=== PATIENT | male | born 1960 | race Caucasian/White ===

== ENCOUNTER 2017-09-25 13:00 | Emergency (ER) | payer MEDICARE, MEDICAID ==
[2017-09-25] MEDS ORDERED: ALBUTEROL SULFATE 0.083% NEB 2.5 MG/3 ML AMPUL NEB ONE (13:52)
--- NOTE | 2017-09-25 13:54 | ER Document Report ---
ED Medical Screen (RME) - General Chief Complaint: Flank Pain Stated Complaint: FLANK PAIN Time Seen by Provider: 09/25/17 13:41 Information source: Patient Notes: 57 y.o male presents to the ED with LT flank pain for the past 3 days. He states that his pain is exacerbated with movement. He denies any dysuria, hematuria, fever, ausea, vomiting and denies any fall. Patient has a wheeze and is SOB with walking. Pt denies any hx of asthma, COPD and emphasema. He uses an albuterol inhaler for emergencies. TRAVEL OUTSIDE OF THE [place] IN LAST 30 DAYS: No - Related Data Allergies/Adverse Reactions: JEOVANY Inhibitors [Jeovany Inhibitors] Allergy (Severe, Verified 09/25/17 13:05) Facial swelling enalapril [Enalapril] Adverse Reaction (Severe, Verified 09/25/17 13:05) periorbital edema lisinopril Adverse Reaction (Severe, Verified 09/25/17 13:05) periorbital edema Past Medical History - General Information source: Patient - Social History Chew tobacco use (# tins/day): No Frequency of alcohol use: None Drug Abuse: None - Past Medical History Cardiac Medical History: Reports: Hx Atrial Fibrillation, Hx Congestive Heart Failure, Hx Coronary Artery Disease, Hx Heart Attack - x2, Hx Hypercholesterolemia, Hx Hypertension Pulmonary Medical History: Reports: Hx Bronchitis, Hx Pneumonia Neurological Medical History: Reports: Hx Cerebrovascular Accident - 2012 Comment Only: Hx Seizures - unsure - maybe one, but not diagnosed 2013 Renal/ Medical History: Reports: Hx Kidney Stones. Denies: Hx Peritoneal Dialysis GI Medical History: Reports: Hx Gastroesophageal Reflux Disease Musculoskeltal Medical History: Reports Hx Multiple Sclerosis Psychiatric Medical History: Reports: Hx Bipolar Disorder Past Surgical History: Reports: Hx Appendectomy, Hx Bowel Surgery, Hx Cardiac Catheterization, Hx Cardiac Surgery, Hx Cholecystectomy, Hx Internal Defibrillator, Hx Tonsillectomy - Immunizations Immunizations up to date: Yes Hx Diphtheria, Pertussis, Tetanus Vaccination: Yes Review of Systems - Review of Systems Constitutional: denies: Fever Gastrointestinal: See HPI. denies: Nausea, Vomiting Genitourinary: See HPI, Flank pain - LT. denies: Dysuria, Hematuria Physical Exam - Vital signs Vitals: Temp Pulse Resp BP Pulse Ox 99.1 F 99 20 140/103 H 94 09/25/17 13:06 09/25/17 13:06 09/25/17 13:06 09/25/17 13:06 09/25/17 13:06 - General General appearance: Alert In distress: None - Respiratory Breath sounds: Wheezing - Extremities General upper extremity: Normal inspection, Normal ROM General lower extremity: Normal inspection, Normal ROM - Neurological Neuro grossly intact: Yes Cognition: Normal Orientation: AAOx4 - Psychological Associated symptoms: Normal affect, Normal mood - Skin Skin Temperature: Warm Skin Moisture: Dry Skin Color: Normal Course - Vital Signs Vital signs: Temp Pulse Resp BP Pulse Ox 99.1 F 99 20 147/99 H 94 09/25/17 13:06 09/25/17 13:06 09/25/17 13:06 09/25/17 13:51 09/25/17 13:06 - Laboratory Result Diagrams: 09/25/17 14:00 09/25/17 14:00 Laboratory results interpreted by me: 09/25/17 14:00 WBC 11.6 H Eosinophils % 8.0 H Absolute Eosinophils 0.9 H Scribe Documentation - Scribe Written by Burt:: Alma Covington, Kevibdheeraj 09/25/17 1522 acting as scribe for :: Louis
--- NOTE | 2017-09-25 14:12 | ER Document Report ---
ED General - General Chief Complaint: Flank Pain Stated Complaint: FLANK PAIN Time Seen by Provider: 09/25/17 13:41 Notes: The patient is a 57-year-old male, past medical history kidney stones, COPD, presents with bilateral flank pain, worse on the left, that is exacerbated with movement. Patient has also had a dry cough with some wheezing over the past 2 days and is using his albuterol at home with some relief of his symptoms. Patient denies fevers, dysuria, hematuria, rash, nausea, vomiting, diarrhea, constipation, chest pain or shortness of breath. TRAVEL OUTSIDE OF THE [place] IN LAST 30 DAYS: No - Related Data Allergies/Adverse Reactions: JEOVANY Inhibitors [Jeovany Inhibitors] Allergy (Severe, Verified 09/25/17 13:05) Facial swelling enalapril [Enalapril] Adverse Reaction (Severe, Verified 09/25/17 13:05) periorbital edema lisinopril Adverse Reaction (Severe, Verified 09/25/17 13:05) periorbital edema Past Medical History - General Information source: Patient - Social History Smoking Status: Never Smoker Chew tobacco use (# tins/day): No Frequency of alcohol use: None Drug Abuse: None Family History: CAD Patient has suicidal ideation: No Patient has homicidal ideation: No - Past Medical History Cardiac Medical History: Reports: Hx Atrial Fibrillation, Hx Congestive Heart Failure, Hx Coronary Artery Disease, Hx Heart Attack - x2, Hx Hypercholesterolemia, Hx Hypertension Denies: Hx Peripheral Vascular Disease, Hx Pulmonary Embolism, Hx Heart Murmur Pulmonary Medical History: Reports: Hx Bronchitis, Hx Pneumonia Denies: Hx Asthma, Hx COPD, Hx Respiratory Failure, Hx Sleep Apnea, Hx Tuberculosis Neurological Medical History: Reports: Hx Cerebrovascular Accident - 2012 Comment Only: Hx Seizures - unsure - maybe one, but not diagnosed 2013 Renal/ Medical History: Reports: Hx Kidney Stones. Denies: Hx Benign Prostatic Hyperplasia, Hx End Stage Renal Disease, Hx Peritoneal Dialysis Malignancy Medical History: Denies Hx Lung Cancer GI Medical History: Reports: Hx Gastroesophageal Reflux Disease. Denies: Hx Crohn's Disease, Hx Hiatal Hernia, Hx Irritable Bowel, Hx Liver Failure, Hx Pancreatitis, Hx Ulcer Musculoskeltal Medical History: Denies Hx Arthritis, Denies Hx Fibromyalgia, Reports Hx Multiple Sclerosis, Denies Hx Muscular Dystrophy Psychiatric Medical History: Reports: Hx Bipolar Disorder Denies: Hx Dementia, Hx Depression, Hx Post Traumatic Stress Disorder, Hx Schizophrenia Traumatic Medical History: Denies: Hx Fractures Past Surgical History: Reports: Hx Appendectomy, Hx Bowel Surgery, Hx Cardiac Catheterization, Hx Cardiac Surgery, Hx Cholecystectomy, Hx Internal Defibrillator, Hx Tonsillectomy. Denies: Hx Colostomy, Hx Coronary Artery Bypass Graft, Hx Gastric Bypass Surgery, Hx Herniorrhaphy, Hx Pacemaker - Immunizations Immunizations up to date: Yes Hx Diphtheria, Pertussis, Tetanus Vaccination: Yes Hx Pneumococcal Vaccination: 08/01/08 Review of Systems - Review of Systems Notes: REVIEW OF SYSTEMS: CONSTITUTIONAL: -fevers, -chills EENT: -eye pain, -difficulty swallowing, -nasal congestion CARDIOVASCULAR: -chest pain, -syncope. RESPIRATORY: +cough, -SOB GASTROINTESTINAL: -abdominal pain, -nausea, -vomiting, -diarrhea GENITOURINARY: -dysuria, -hematuria MUSCULOSKELETAL: +back pain, -neck pain SKIN: -rash or skin lesions. HEMATOLOGIC: -easy bruising or bleeding. LYMPHATIC: -swollen, enlarged glands. NEUROLOGICAL: -altered mental status or loss of consciousness, -headache, - neurologic symptoms PSYCHIATRIC: -anxiety, -depression. ALL OTHER SYSTEMS REVIEWED AND NEGATIVE. Physical Exam - Vital signs Vitals: Temp Pulse Resp BP Pulse Ox 99.1 F 99 20 140/103 H 94 09/25/17 13:06 09/25/17 13:06 09/25/17 13:06 09/25/17 13:06 09/25/17 13:06 - Notes Notes: PHYSICAL EXAMINATION: GENERAL: Well-appearing, well-nourished and in no acute distress. HEAD: Atraumatic, normocephalic. EYES: Pupils equal round and reactive to light, extraocular movements intact, sclera anicteric, conjunctiva are normal. ENT: nares patent, oropharynx clear without exudates. Moist mucous membranes. NECK: Normal range of motion, supple without lymphadenopathy LUNGS: No respiratory distress. Mild end-expiratory wheeze. HEART: Regular rate and rhythm without murmurs ABDOMEN: Soft, nontender, normoactive bowel sounds. No guarding, no rebound. No masses appreciated. EXTREMITIES: Normal range of motion, no pitting or edema. No cyanosis. BACK: Tenderness over left lower back, no midline tenderness. NEUROLOGICAL: Cranial nerves grossly intact. Normal speech, normal gait. Normal sensory and motor exams. PSYCH: Normal mood, normal affect. SKIN: Warm, Dry, normal turgor, no rashes or lesions noted. Course - Re-evaluation Re-evalutation: Patient appears well. No kidney stones on CT scan and symptoms are more typical for low back strain. No red flag signs for low back pain at this time. Instructed him about symptomatic treatment with Tylenol, heating pads and Lidoderm patches with follow-up at his primary care physician. He also had mild wheezing that resolved after duonebs and he was provided a dose of Decadron. Will discharge patient home with very strict return precautions. - Vital Signs Vital signs: Temp Pulse Resp BP Pulse Ox 99.1 F 99 20 147/99 H 94 09/25/17 13:06 09/25/17 13:06 09/25/17 13:06 09/25/17 13:51 09/25/17 13:06 - Laboratory Result Diagrams: 09/25/17 14:00 09/25/17 14:00 Laboratory results interpreted by me: 09/25/17 09/25/17 09/25/17 14:00 14:00 14:00 WBC 11.6 H Eosinophils % 8.0 H Absolute Eosinophils 0.9 H BUN 23 H Creatinine 1.29 H Est GFR (Non-Af Amer) 58 L NT-Pro-B Natriuret Pep 1490 H Urine Urobilinogen 09/25/17 14:56 WBC Eosinophils % Absolute Eosinophils BUN Creatinine Est GFR (Non-Af Amer) NT-Pro-B Natriuret Pep Urine Urobilinogen 4.0 H - Diagnostic Test Radiology reviewed: Image reviewed, Reports reviewed Radiology results interpreted by me: CXR: NAD CT A/P: NAD Discharge - Discharge Clinical Impression: Bronchitis Low back pain Qualifiers: Chronicity: unspecified Back pain laterality: left Sciatica presence: without sciatica Qualified Code(s): M54.5 - Low back pain Condition: Stable Disposition: HOME, SELF-CARE Additional Instructions: LOW BACK PAIN: Three out of every four people will have an episode of disabling back pain during their lifetime. Most commonly the pain is due to straining of the muscles and ligaments in the low back. Usual treatment includes: (1) Rest on a firm surface. Avoid lying on your stomach. (2) Ice pack the painful area. After a few days, gentle heat may be used intermittently to relax the area, or ice packs can be continued. (3) Medication may be needed -- muscle relaxers and antiinflammatory medicines are commonly used. (4) As the back improves, exercises are prescribed to strengthen the back and abdominal muscles. Your doctor will advise you on the proper care for your back at each stage in your recovery. You may be better in a few days -- or healing may take several weeks. If new symptoms of a "herniated disc" (radiation of pain, numbness, or tingling down the back of the leg or weakness in the leg) occur, you should be re-examined. Further testing may be necessary. ICE PACKS: Apply ice packs frequently against the painful area. Many different schedules are recommended, such as "20 minutes on, 20 minutes off" or "one hour ice, two hours rest." If you need to work, you may need to go longer between ice treatments. You should plan to have the area ice packed AT LEAST one fourth of the time. The ice should be applied over the wrap, tape, or splint, or over a layer of cloth -- not directly against the skin. Some ice bags have a built-in cloth and can be put directly on the skin. WARM PACKS: After approximately two days, apply gentle heat (such as a heating pad or hot water bottle) for about 20 to 30 minutes about every two hours -- at least four times daily. Warmth and elevation will help you make a more rapid recovery , and will ease the pain considerably. Do not use HOT heat, and never apply heat for longer than 30 minutes. The continuous heat can invisibly damage skin and muscles -- even when no burn is seen on the surface. Damaged muscles can make you MORE sore. FOLLOW-UP CARE: If you have been referred to a physician for follow-up care, call the physician s office for an appointment as you were instructed or within the next two days. If you experience worsening or a significant change in your symptoms, notify the physician immediately or return to the Emergency Department at any time for re-evaluation. BRONCHITIS WITH BRONCHOSPASM (WHEEZING): You have bronchitis with bronchospasm (wheezing). Sometimes people develop wheezing with a chest cold. This occurs either because of an underlying tendency toward asthma or because the virus itself irritates the bronchial tubes. This irritation causes cough, shortness of breath, and wheezing. Emergency treatment of bronchospasm may include adrenaline shots or bronchodilator aerosol. You may feel lightheaded and have a rapid pulse for an hour or two. Rest and get plenty of fluids. At home, we'll treat you with a bronchodilator inhaler. Corticosteroids may be required for some patients. Until you recover, avoid chemical fumes, dusts, pollens, and exercising in very cold or dry air. If you smoke, stop now! Most cases of bronchitis get better without antibiotics. We prescribe antibiotics when we believe bacteria are damaging your airways, or if there's high risk the bronchitis will worsen into pneumonia. Increase your fluid intake. A cool mist humidifier may make your lungs more comfortable. An expectorant (cough medicine that loosens phlegm) can help. Repeated episodes of bronchitis and bronchospasm may result in lung damage -- for example, chronic bronchitis, recurrent pneumonias, or emphysema. If you develop a fever, increased wheezing, chest pain, or severe shortness of breath, you should contact the doctor immediately. INHALED BRONCHODILATORS: You have received a treatment of and/or prescription for an inhaled bronchodilator -- a medication which stimulates the airways in the lung to dilate. This improves the flow of air in asthma, bronchitis, and emphysema. These medicines have some similarity to adrenaline, and can cause similar side effects: shakiness, racing heart, and a sense of nervousness. These side effects decrease with time. Contact your doctor if these side effects are severe. Do not over-use the medicine. Too-frequent use of the inhaler may make it ineffective. Call your doctor if the inhaler is not controlling your symptoms at the prescribed doses. STEROID MEDICATION: You have been given an injection of or oral medicine of the cortisone/ steroid class. This medication is used to control inflammation or allergy. Rick t is usually only given for a short period of time, until the acute process subsides. There are usually no side effects from short-term use of cortisone-like medications. Some persons feel an increased sense of well-being and are not sleepy at bedtime. Long-term use of cortisone medications is best avoided, unless required for a severe condition. If your condition does not remit, or relapses after the course of corticosteroid medication, you should consult your physician. USE OF ACETAMINOPHEN (Tylenol): Acetaminophen may be taken for pain relief or fever control. It's much safer than aspirin, offering a wider range of "safe" dosages. It is safe during . Some brand names are Tylenol, Panadol, Datril, Anacin 3, Tempra, and Liquiprin. Acetaminophen can be repeated every four hours. The following are maximum recommended dosages: >89 pounds or adults 650 mg to 900 mg Acetaminophen can be repeated every four hours. Maximum dose not to exceed 4000 mg a day. SMOKING: If you smoke, you should stop smoking. The tar and chemicals in cigarette smoke are harmful. Smoking has been shown to cause: emphysema chronic bronchitis lung cancer mouth and throat cancer stomach and pancreas cancer premature aging defects In addition, smoking increases ear and lung infections in children of smokers. FOLLOW-UP CARE: If you have been referred to a physician for follow-up care, call the physician s office for an appointment as you were instructed or within the next two days. If you experience worsening or a significant change in your symptoms, notify the physician immediately or return to the Emergency Department at any time for re-evaluation. Prescriptions: Albuterol Sulfate [Proair HFA Inhalation Aerosol 8.5 gm MDI] 2 puff IH Q4H PRN # 1 mdi PRN Reason: Lidocaine [Lidoderm 5% (700 mg) Transdermal Patch] 1 patch TP DAILY #10 adh..patch Forms: Elevated Blood Pressure Referrals: JUANITO PEARCE MD [Primary Care Provider] - Follow up as needed
[2017-09-25 14:16] LABS: ABSOLUTE BASOPHILS # (AUTO) 0.2 10^3/uL (0.0-0.2); ABSOLUTE EOSINOPHILS # (AUTO) 0.9 10^3/uL (0.0-0.6); ABSOLUTE LYMPHOCYTES (AUTO) 1.8 10^3/uL (0.5-4.7); ABSOLUTE MONOCYTES (AUTO) 0.7 10^3/uL (0.1-1.4); ABSOLUTE NEUT (AUTO) 8.1 10^3/uL (1.7-8.2); BASOPHILS % (AUTO) 1.4 % (0-2); HEMATOCRIT 42.7 % (37.9-51.0); HEMOGLOBIN 14.3 g/dL (13.5-17.0); LYMPHOCYTES % (AUTO) 15.4 % (13-45); MEAN CORPUSCULAR HEMOGLOBIN 29.9 pg (27.0-33.4); MEAN CORPUSCULAR HGB CONC 33.4 g/dL (32.0-36.0); MEAN CORPUSCULAR VOLUME 89 fl (80-97); MONOCYTES % (AUTO) 5.7 % (3-13); PLATELET COUNT 231 10^3/uL (150-450); RED BLOOD COUNT 4.77 10^6/uL (4.35-5.55); RED CELL DISTRIBUTION WIDTH 13.9 % (11.5-14.0); SEGMENTED NEUTROPHILS % (AUTO) 69.5 % (42-78); TOTAL CELLS COUNTED % (AUTO) 100 %; WHITE BLOOD COUNT 11.6 10^3/uL (4.0-10.5)
[2017-09-25] MEDS: IPRATROPIUM BROMIDE 0.02% NEB 0.5 MG/2.5 ML AMPUL NEB PRN ×2 (14:16→16:24)
--- NOTE | 2017-09-25 14:24 | RADIOLOGY REPORT (SQ) ---
EXAM DESCRIPTION: CHEST PA/LAT COMPLETED DATE/TIME: 09/25/2017 2:12 pm REASON FOR STUDY: wheezing COMPARISON: 01/31/2016 EXAM PARAMETERS: NUMBER OF VIEWS: two views TECHNIQUE: Digital Frontal and Lateral radiographic views of the chest acquired. RADIATION DOSE: NA LIMITATIONS: none FINDINGS: LUNGS AND PLEURA: No opacities, masses or pneumothorax. No pleural effusion. MEDIASTINUM AND HILAR STRUCTURES: No masses or contour abnormalities. HEART AND VASCULAR STRUCTURES: Heart stable in size. No evidence for failure. BONES: No acute findings. HARDWARE: Stable. OTHER: No other significant finding. IMPRESSION: NO ACUTE CARDIOPULMONARY PROCESS. NO SIGNIFICANT CHANGE FROM PRIOR STUDY. TECHNICAL DOCUMENTATION: JOB ID: [id number] [employer]- All Rights Reserved Reading location - IP/workstation name: [email or web address]
[2017-09-25 14:36] LABS: ALANINE AMINOTRANSFERASE 34 U/L (21-72); ALBUMIN 3.8 g/dL (3.5-5.0); ALKALINE PHOSPHATASE 78 U/L (38-126); ANION GAP 13 (5-19); ASPARTATE AMINO TRANSFERASE 21 U/L (17-59); BILIRUBIN,DIRECT 0.3 mg/dL (0.0-0.4); BILIRUBIN,TOTAL 0.3 mg/dL (0.2-1.3); BLOOD UREA NITROGEN 23 mg/dL (7-20); CARBON DIOXIDE 30 mmol/L (22-30); CHLORIDE 102 mmol/L (98-107); GLUCOSE 86 mg/dL (75-110); LIPASE 130.1 U/L (23-300); POTASSIUM 4.5 mmol/L (3.6-5.0); SODIUM 144.7 mmol/L (137-145); TOTAL PROTEIN 6.5 g/dL (6.3-8.2)
[2017-09-25 14:47] LABS: TROPONIN I 0.016 ng/mL
[2017-09-25] MEDS ORDERED: ACETAMINOPHEN 325 MG TABLET PO ONE (14:57)
[2017-09-25] MEDS ORDERED: NAPROXEN 250 MG TABLET PO ONE (14:57)
[2017-09-25 15:23] LABS: APPEARANCE,URINE CLEAR; BILIRUBIN,URINE NEGATIVE (NEGATIVE); COLOR,URINE YELLOW; GLUCOSE, URINE NEGATIVE (NEGATIVE); KETONES,URINE NEGATIVE (NEGATIVE); LEUKOCYTE ESTERASE,URINE NEGATIVE (NEGATIVE); NITRITE,URINE NEGATIVE (NEGATIVE); PROTEIN,URINE NEGATIVE (NEGATIVE); URINE SPECIFIC GRAVITY 1.024
--- NOTE | 2017-09-25 15:32 | RADIOLOGY REPORT (SQ) ---
EXAM DESCRIPTION: CT LTD RENAL STONE PROTOCOL ON COMPLETED DATE/TIME: 09/25/2017 3:22 pm REASON FOR STUDY: left flank pain radiating into groin COMPARISON: 06/02/2016. TECHNIQUE: CT scan of the abdomen and pelvis performed without intravenous or oral contrast. Images reviewed with lung, soft tissue, and bone windows. Reconstructed coronal and sagittal MPR images revi ewed. All images stored on PACS. All CT scanners at this facility use dose modulation, iterative reconstruction, and/or weight based d osing when appropriate to reduce radiation dose to as low as reasonably achievable (ALARA). [facility]: Dose Right [facility]: CareDose [facility]: Dose Right [facility]: Teradose 4D [facility]: [employer] RADIATION DOSE: CT Rad equipment meets quality standard of care and radiation dose reduction techniq ues were employed. CTDIvol: 18.9 mGy. DLP: 1080 mGy-cm.mGy. LIMITATIONS: None. FINDINGS: LOWER CHEST: No significant findings. No nodules or infiltrates. NON-CONTRASTED LIVER, SPLEEN, ADRENALS: Evaluation limited by lack of IV contrast. No identified sign ificant masses. PANCREAS: No masses. No peripancreatic inflammatory changes. GALLBLADDER: No identified stones by CT criteria. No inflammatory changes to suggest cholecystitis. RIGHT KIDNEY AND URETER: No suspicious masses. Assessment limited by lack of IV contrast. No signif icant calcifications. No hydronephrosis or hydroureter. LEFT KIDNEY AND URETER: No suspicious masses. Assessment limited by lack of IV contrast. No signifi cant calcifications. No hydronephrosis or hydroureter. AORTA AND RETROPERITONEUM: No aneurysm. No retroperitoneal masses or adenopathy. BOWEL AND PERITONEAL CAVITY: No obvious masses or inflammatory changes. No free fluid. APPENDIX: Normal. PELVIS, BLADDER, AND ABDOMINAL WALL:No abnormal masses. No free fluid. Bladder normal. Stable fat co ntaining inguinal hernias. BONES: Stable degenerative change without fracture or suspicious osseous lesion. OTHER: No other significant finding. IMPRESSION: NO ACUTE FINDINGS ON THIS NONCONTRAST CT OF THE ABDOMEN AND PELVIS. NO SIGNIFICANT INIGUEZ GE FROM PRIOR STUDY. COMMENT: Quality ID # [id number]: Final reports with documentation of one or more dose reduction techniques (e.g., Automated exposure control, adjustment of the mA and/or kV according to patient size, use of iterative reconstruction technique) TECHNICAL DOCUMENTATION: JOB ID: [id number] [employer]- All Rights Reserved Reading location - IP/workstation name: [email or web address]
--- NOTE | 2017-09-25 16:13 | EKG REPORT ---
SEVERITY:- ABNORMAL ECG - VENTRICULAR-PACED COMPLEXES , BASELINE A FIB. NONSPECIFIC T ABNORMALITIES, INFERIOR LEADS : Confirmed by: Humble Murguia MD 25-Sep-2017 16:13:17
[2017-09-25 17:30] VITALS: BP 130/97
== END 2017-09-25 17:31 | disposition home or self-care (01) ==
LOC: ER 13:00
DX: J40 Bronchitis, not specified as acute or chronic (principal); M54.5 Low back pain; J44.9 Chronic obstructive pulmonary disease, unspecified; I48.91 Unspecified atrial fibrillation; I50.9 Heart failure, unspecified; E78.00 Pure hypercholesterolemia, unspecified; I11.0 Hypertensive heart disease with heart failure; I25.2 Old myocardial infarction; Z86.73 Personal history of transient ischemic attack (TIA), and cerebral infarction without residual deficits; Z87.442 Personal history of urinary calculi; Z90.49 Acquired absence of other specified parts of digestive tract; Z95.810 Presence of automatic (implantable) cardiac defibrillator
CPT/HCPCS: 93005; 94640 ×2; 99285; 36415; 83690; 85025; 80053; 81001; 84484; 83880; 71046; 76380; 93010; A9270 ×3; J3490

== ENCOUNTER → 2017-09-29 | Outpatient (CLI) | payer MEDICARE, MEDICAID ==
--- NOTE | 2017-09-30 08:26 | XCELERA REPORT ---
[address] [address] Lower Extremity Arterial Evaluation Name: MALAIKA SARGENT Age: 57 yrs Gender: Male : 1960 Patient Status: Outpatient Patient Location: Study Date: 09/29/2017 08:02 AM Procedure: A color flow and duplex scan of the lower extremity arteries was performed bilaterally with velocity and waveform anaylsis. Ankle brachial indicies performed. PPG's performed. Reason For Study: PVD Ordering Physician: TAMMI KING Performed By: Linden Banegas Measurements and Calculations Right Left CORONER'S JUROR PSV 77.6 96.5 cm/sec Prox PFA PSV -53.0 -61.8 cm/sec Prox SFA PSV 108.2 99.8 cm/sec Mid SFA PSV -79.0 -92.1 cm/sec Dist SFA PSV -70.3 -57.9 cm/sec Prox Pop A PSV 63.3 64.8 cm/sec Dist MARIELA PSV 83.4 110.0 cm/sec Dist MEDICAL CLERICAL ASSISTANT PSV 79.5 77.1 cm/sec Louie Pedis PSV -60.9 -80.0 cm/sec Right Side Arterial Evaluation Normal velocity and triphasic waveforms noted from the Common Femoral artery to the infrageniculate vessels. 0 % stenosis . Ankle Brachial index is 1.1. PPG's are normal. Left Side Arterial Evaluation Normal velocity and triphasic waveforms noted from the Common Femoral artery to the infrageniculate vessels. 0 % stenosis . Ankle Brachial index is 1.04. PPG's are normal. Interpretation Summary No hemodynamically significant lesions in the bilateral lower extremities, on duplex imaging, at rest. : TAMMI KING > Morro Higgins
== END ==
LOC: SP 07:18
PROVIDERS: ATTEND Podiatrist Foot & Ankle Surgery
DX: I73.9 Peripheral vascular disease, unspecified (principal)
CPT/HCPCS: 93925

== ENCOUNTER → 2018-07-07 | Outpatient (CLI) | payer MEDICAID, MEDICARE ==
--- NOTE | 2018-07-07 16:32 | RADIOLOGY REPORT (SQ) ---
EXAM DESCRIPTION: CT HEAD WITHOUT COMPLETED DATE/TIME: 07/07/2018 4:14 pm REASON FOR STUDY: G93.40 ENCEPHALOPATHY, UNSPECIFIED G93.40 ENCEPHALOPATHY, UNSPECIFIED COMPARISON: CT brain 11/22/2013, 03/11/2013 TECHNIQUE: Axial images acquired through the brain without intravenous contrast. Images reviewed wi th bone, brain and subdural windows. Additional sagittal and coronal reconstructions were generated. Images stored on PACS. All CT scanners at this facility use dose modulation, iterative reconstruction, and/or weight based d osing when appropriate to reduce radiation dose to as low as reasonably achievable (ALARA). [facility]: Dose Right [facility]: CareDose [facility]: Dose Right [facility]: Teradose 4D [facility]: [employer] RADIATION DOSE: CT Rad equipment meets quality standard of care and radiation dose reduction techniq ues were employed. CTDIvol: 48.7 mGy. DLP: 955 mGy-cm. mGy. LIMITATIONS: None. FINDINGS: VENTRICLES: Normal size and contour. CEREBRUM: No CT evidence of acute large territory ischemic change, acute intracranial hemorrhage, mas s effect, or midline shift. Old left posterior temporal white matter infarct, spotty low attenuation elsewhere in the hemispheric white matter from small vessel ischemic change, chronic. CEREBELLUM: No masses. No hemorrhage. No alteration of density. No evidence for acute infarction. EXTRAAXIAL SPACES: No fluid collections. No masses. ORBITS AND GLOBE: No intra- or extraconal masses. Normal contour of globe without masses. CALVARIUM: No fracture. PARANASAL SINUSES: Trace air-fluid levels in the bilateral maxillary sinuses SOFT TISSUES: No mass or hematoma. OTHER: No other significant finding. 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 Moderate spotty chronic small vessel ischemic correia ge elsewhere in the hemispheric white matter, stable. EVIDENCE OF ACUTE STROKE: NO. COMMENT: This report was discussed with Dr. Conti Quality ID # [id number]: Final reports with documentation of one or more dose reduction techniques (e.g., Au tomated exposure control, adjustment of the mA and/or kV according to patient size, use of iterative reconstruction technique) TECHNICAL DOCUMENTATION: JOB ID: [id number] [employer]- All Rights Reserved Reading location - IP/workstation name: [email or web address]
== END ==
LOC: RAD 16:28
PROVIDERS: ATTEND Internal Medicine
DX: G93.40 Encephalopathy, unspecified (principal)
CPT/HCPCS: 70450

== ENCOUNTER 2018-07-18 16:57 | Observation (INO) | payer MEDICARE ==
[2018-07-18] MEDS ORDERED: FUROSEMIDE INJ/PF 20 MG/2 ML SDV IV ONE (17:23)
--- NOTE | 2018-07-18 17:23 | ER Document Report ---
ED General - General Chief Complaint: Breathing Difficulty Stated Complaint: DIFFICULTY BREATHING Time Seen by Provider: 07/18/18 17:21 Mode of Arrival: Ambulatory Information source: Patient, Dr. Office, [facility] Records Notes: 58-year-old male with congestive heart failure, atrial fibrillation with defibrillator presents from his primary care physician's office Dr. Conti for a direct admission for acute on chronic systolic heart failure. Patient states that he has had shortness of breath for 1 week. He reports a 20 pound weight gain in the last month. Patient denies any associated headache, nausea, vomiting, chest pain, abdominal pain. Does report swelling of his lower extremities. TRAVEL OUTSIDE OF THE [place] IN LAST 30 DAYS: No - HPI Onset: Other Onset/Duration: Gradual, Persistent Quality of pain: No pain Associated symptoms: Leg swelling, Shortness of breath. denies: Chest pain, Nonproductive cough, Productive cough, Hurts to breath, Nausea, Vomiting Exacerbated by: Walking Relieved by: Denies Similar symptoms previously: Yes Recently seen / treated by doctor: Yes - Seen by Dr. Conti today - Related Data Allergies/Adverse Reactions: JEOVANY Inhibitors [Jeovany Inhibitors] Allergy (Severe, Verified 09/25/17 13:05) Facial swelling enalapril [Enalapril] Adverse Reaction (Severe, Verified 09/25/17 13:05) periorbital edema lisinopril Adverse Reaction (Severe, Verified 09/25/17 13:05) periorbital edema Past Medical History - General Information source: Patient, [facility] Records - Social History Smoking Status: Never Smoker Frequency of alcohol use: None Drug Abuse: None Lives with: Spouse/Significant other Family History: CAD - Past Medical History Cardiac Medical History: Reports: Hx Atrial Fibrillation, Hx Congestive Heart Failure, Hx Coronary Artery Disease, Hx Heart Attack - 2012, Hx Hypercholesterolemia, Hx Hypertension - MEDS Denies: Hx Peripheral Vascular Disease, Hx Pulmonary Embolism, Hx Heart Murmur Pulmonary Medical History: Reports: Hx Bronchitis, Hx Pneumonia Denies: Hx Asthma, Hx COPD, Hx Respiratory Failure, Hx Sleep Apnea, Hx Tuberculosis Neurological Medical History: Reports: Hx Cerebrovascular Accident - 2011 OR 2012, Hx Seizures - LAST WEEK EMT TO HOUSE,TREATED TOLD TO GO TO [facility] Renal/ Medical History: Reports: Hx Kidney Stones. Denies: Hx Benign Prostatic Hyperplasia, Hx End Stage Renal Disease, Hx Peritoneal Dialysis Malignancy Medical History: Denies Hx Lung Cancer GI Medical History: Reports: Hx Gastroesophageal Reflux Disease. Denies: Hx Crohn's Disease, Hx Hepatitis, Hx Hiatal Hernia, Hx Irritable Bowel, Hx Liver Failure, Hx Pancreatitis, Hx Ulcer Musculoskeletal Medical History: Denies Hx Arthritis, Denies Hx Fibromyalgia, Reports Hx Multiple Sclerosis, Denies Hx Muscular Dystrophy Psychiatric Medical History: Reports: Hx Bipolar Disorder Denies: Hx Dementia, Hx Depression, Hx Post Traumatic Stress Disorder, Hx Schizophrenia Traumatic Medical History: Denies: Hx Fractures Infectious Medical History: Denies: Hx Hepatitis Past Surgical History: Reports: Hx Appendectomy, Hx Bowel Surgery, Hx Cardiac Catheterization, Hx Cardiac Surgery, Hx Cholecystectomy, Hx Internal Defibrillator, Hx Pacemaker, Hx Tonsillectomy. Denies: Hx Colostomy, Hx Coronary Artery Bypass Graft, Hx Gastric Bypass Surgery, Hx Herniorrhaphy, Hx Open Heart Surgery - Immunizations Immunizations up to date: Yes Hx Diphtheria, Pertussis, Tetanus Vaccination: Yes Hx Pneumococcal Vaccination: 08/01/08 Review of Systems - Review of Systems Notes: REVIEW OF SYSTEMS: CONSTITUTIONAL : Denies fever, chills, or sweats. Denies recent illness. Denies weight loss, recent hospitalizations. EENT: Denies visual changes, eye pain. Denies sore throat, oral lesions, difficulty swallowing. CARDIOVASCULAR: Denies chest pain. Denies palpitations. Denies lower extremity edema. RESPIRATORY: Denies cough. wheezing. GASTROINTESTINAL: Denies abdominal pain or distention. Denies nausea, vomiting , or diarrhea. Denies blood in vomitus, stools, or per rectum. Denies black, tarry stools. Denies constipation. GENITOURINARY: Denies difficulty urinating, painful urination, frequency, blood in urine, testicular pain or penile discharge. MUSCULOSKELETAL: Denies back or neck pain or stiffness. Denies joint pain. SKIN: Denies rash, lesions or sores. HEMATOLOGIC : Denies easy bruising or bleeding. LYMPHATIC: Denies swollen glands. NEUROLOGICAL: Denies confusion or altered mental status. Denies loss of consciousness. Denies dizziness or lightheadedness. Denies headache. Denies weakness or paralysis. Denies problems difficulty with ambulation, slurred speech. Denies sensory loss, numbness, or tingling. Denies seizures. PSYCHIATRIC: Denies anxiety or stress. Denies depression, suicidal ideation, or Physical Exam - Vital signs Vitals: Temp Pulse Resp BP Pulse Ox 98.6 F 101 H 21 H 131/94 H 95 07/18/18 17:09 07/18/18 17:09 07/18/18 17:09 07/18/18 17:09 07/18/18 17:09 - Notes Notes: PHYSICAL EXAMINATION: GENERAL: Well-appearing, well-nourished and in no acute distress. HEAD: Atraumatic, normocephalic. EYES: Pupils equal round and reactive to light, extraocular movements intact, sclera anicteric, conjunctiva are normal. ENT: Nares patent, oropharynx clear without exudates. Moist mucous membranes. NECK: Normal range of motion, supple without lymphadenopathy LUNGS: Diminished breath sounds bilateral lower lung marcum, no wheezes rales or rhonchi. No accessory muscle use. No respiratory distress. HEART: Regular rate and rhythm without murmurs ABDOMEN: Soft, nontender, nondistended abdomen. No guarding, no rebound. No masses appreciated. Musculoskeletal: Normal range of motion, 1+ edema. No cyanosis. NEUROLOGICAL: Cranial nerves grossly intact. Normal speech, normal gait. Normal sensory, motor exams PSYCH: Normal mood, normal affect. SKIN: Warm, Dry, normal turgor, no rashes or lesions noted. Course - Re-evaluation Re-evalutation: Laboratory 07/18/18 07/18/18 17:49 17:49 WBC 13.4 H RBC 4.44 Hgb 13.3 L Hct 40.4 MCV 91 MCH 30.1 MCHC 33.1 RDW 13.9 Plt Count 267 Seg Neutrophils % 76.3 Lymphocytes % 13.0 Monocytes % 5.7 Eosinophils % 4.3 Basophils % 0.7 Absolute Neutrophils 10.2 H Absolute Lymphocytes 1.7 Absolute Monocytes 0.8 Absolute Eosinophils 0.6 Absolute Basophils 0.1 Sodium 144.7 Potassium 4.9 Chloride 109 H Carbon Dioxide 29 Anion Gap 7 BUN 23 H Creatinine 1.36 H Est GFR ( Amer) > 60 Est GFR (Non-Af Amer) 54 L Glucose 110 Calcium 9.3 Total Bilirubin 0.8 Direct Bilirubin 0.3 Neonat Total Bilirubin Not Reportable Neonat Direct Bilirubin Not Reportable Neonat Indirect Bili Not Reportable AST 19 ALT 13 L Alkaline Phosphatase 100 Total Protein 6.7 Albumin 3.9 Chest X-Ray 12/18/18 17:21 IMPRESSION: NO ACUTE RADIOGRAPHIC FINDING IN THE CHEST. 07/18/18 17:31 58-year-old male presents from Dr. Conti's office for direct admission for acute on chronic systolic heart failure. Vital signs reviewed upon arrival and patient is mildly tachycardic with a pulse of 100, afebrile. Patient has an exam significant for 1+ pitting edema and diminished breath sounds. He is in no respiratory distress. Previous medical records and nursing notes reviewed. Written orders from Dr. Conti were followed. Patient will be admitted for observation to the medical floor. 07/18/18 18:38 - Vital Signs Vital signs: Temp Pulse Resp BP Pulse Ox 98.6 F 101 H 21 H 131/94 H 95 07/18/18 17:09 07/18/18 17:09 07/18/18 17:09 07/18/18 17:09 07/18/18 17:09 - Laboratory Result Diagrams: 07/18/18 17:49 07/18/18 17:49 Laboratory results interpreted by me: 07/18/18 07/18/18 17:49 17:49 WBC 13.4 H Hgb 13.3 L Absolute Neutrophils 10.2 H Chloride 109 H BUN 23 H Creatinine 1.36 H Est GFR (Non-Af Amer) 54 L ALT 13 L - Diagnostic Test Radiology reviewed: Image reviewed, Reports reviewed Discharge - Discharge Clinical Impression: Shortness of breath, Body mass index 39.0-39.9, adult, Acute systolic heart failure, Atrial fibrillation Acute on chronic heart failure Qualifiers: Heart failure type: unspecified Qualified Code(s): I50.9 - Heart failure, unspecified Condition: Good Disposition: ADMITTED OBSERVATION Admitting Provider: Sushila Unit Admitted: Medical Floor
--- NOTE | 2018-07-18 17:48 | RADIOLOGY REPORT (SQ) ---
EXAM DESCRIPTION: CHEST 2 VIEWS COMPLETED DATE/TIME: 07/18/2018 5:38 pm REASON FOR STUDY: Shortness of breath COMPARISON: 09/25/2017 EXAM PARAMETERS: NUMBER OF VIEWS: two views TECHNIQUE: Digital Frontal and Lateral radiographic views of the chest acquired. RADIATION DOSE: NA LIMITATIONS: none FINDINGS: LUNGS AND PLEURA: No opacities, masses or pneumothorax. No pleural effusion. MEDIASTINUM AND HILAR STRUCTURES: No masses or contour abnormalities. HEART AND VASCULAR STRUCTURES: Heart normal size. No evidence for failure. BONES: No acute findings. HARDWARE: Battery pack and lead remain in place. OTHER: No other significant finding. IMPRESSION: NO ACUTE RADIOGRAPHIC FINDING IN THE CHEST. TECHNICAL DOCUMENTATION: JOB ID: [id number] [employer]- All Rights Reserved Reading location - IP/workstation name: [email or web address]
[2018-07-18 18:16] LABS: ABSOLUTE BASOPHILS # (AUTO) 0.1 10^3/uL (0.0-0.2); ABSOLUTE EOSINOPHILS # (AUTO) 0.6 10^3/uL (0.0-0.6); ABSOLUTE LYMPHOCYTES (AUTO) 1.7 10^3/uL (0.5-4.7); ABSOLUTE MONOCYTES (AUTO) 0.8 10^3/uL (0.1-1.4); ABSOLUTE NEUT (AUTO) 10.2 10^3/uL (1.7-8.2); BASOPHILS % (AUTO) 0.7 % (0-2); EOSINOPHILS % (AUTO) 4.3 % (0-6); HEMATOCRIT 40.4 % (37.9-51.0); HEMOGLOBIN 13.3 g/dL (13.5-17.0); MEAN CORPUSCULAR HEMOGLOBIN 30.1 pg (27.0-33.4); MEAN CORPUSCULAR HGB CONC 33.1 g/dL (32.0-36.0); MEAN CORPUSCULAR VOLUME 91 fl (80-97); MONOCYTES % (AUTO) 5.7 % (3-13); PLATELET COUNT 267 10^3/uL (150-450); RED BLOOD COUNT 4.44 10^6/uL (4.35-5.55); RED CELL DISTRIBUTION WIDTH 13.9 % (11.5-14.0); SEGMENTED NEUTROPHILS % (AUTO) 76.3 % (42-78); TOTAL CELLS COUNTED % (AUTO) 100 %; WHITE BLOOD COUNT 13.4 10^3/uL (4.0-10.5)
[2018-07-18 18:31] LABS: ALANINE AMINOTRANSFERASE 13 U/L (21-72); ALBUMIN 3.9 g/dL (3.5-5.0); ALKALINE PHOSPHATASE 100 U/L (38-126); ANION GAP 7 (5-19); ASPARTATE AMINO TRANSFERASE 19 U/L (17-59); BILIRUBIN,DIRECT 0.3 mg/dL (0.0-0.4); BILIRUBIN,TOTAL 0.8 mg/dL (0.2-1.3); BLOOD UREA NITROGEN 23 mg/dL (7-20); CALCIUM 9.3 mg/dL (8.4-10.2); CARBON DIOXIDE 29 mmol/L (22-30); CHLORIDE 109 mmol/L (98-107); GLUCOSE 110 mg/dL (75-110); POTASSIUM 4.9 mmol/L (3.6-5.0); SODIUM 144.7 mmol/L (137-145); TOTAL PROTEIN 6.7 g/dL (6.3-8.2)
[2018-07-18] MEDS: NORMAL SALINE 250 ML with FUROSEMIDE 250 MG IV PRN ×2 (20:40)
--- NOTE | 2018-07-18 21:47 | PDOC H&P ---
History of Present Illness Admission Date/PCP: 07/18/18 18:15 JUANITO PEARCE MD History of Present Illness: MALAIKA SARGENT is a 58 year old male he has chronic systolic heart failure, chronic atrial fibrillation on chronic anticoagulation, he came to the office for evaluation of progressive swelling of both lower extremities despite increasing the dosage of furosemide. In the office he was evaluated he also admitted to history of progressive shortness of breath, orthopnea and PND. He was in CHF in the office, he was advised admission to the hospital for the management of a compensated chronic systolic heart failure. Patient recently was diagnosed with some form of dementia, he recently left his residence in the middle of the night, barefooted walking aimlessly on he has no memory of that behavior. I saw him in the office about 2 weeks ago for the evaluation of these problems, CT head was done it was negative for any acute pathology, there was no metabolic explanation for his symptoms based on comprehensive metabolic panel that was drawn in the office and evaluated. It is very possible that this patient is not compliant with his medication especially with underlying cognitive impairment he is also very sedentary no active lifestyle. Past Medical History Cardiac Medical History: Reports: Atrial Fibrillation, Congestive Heart Failure, Coronary Artery Disease, Myocardial Infarction - 2012, Hyperlipidema, Hypertension - MEDS Pulmonary Medical History: Reports: Bronchitis, Pneumonia Neurological Medical History: Reports: Seizures - LAST WEEK EMT TO HOUSE,TREATED TOLD TO GO TO [facility] Medical History: Reports: Gastroesophageal Reflux Disease Psychiatric Medical History: Reports: Bipolar Disorder Past Surgical History Past Surgical History: Reports: Appendectomy, Cardiac Catheterization, Cholecystectomy, Internal Defibrillator, Pacemaker, Tonsillectomy Social History Lives with: Spouse/Significant other Smoking Status: Never Smoker Frequency of Alcohol Use: None Hx Recreational Drug Use: No Drugs: None Hx Prescription Drug Abuse: No Family History Family History: CAD Parental Family History Reviewed: Yes Children Family History Reviewed: Yes Sibling(s) Family History Reviewed.: Yes Medication/Allergy Home Medications: Spironolactone 50 mg PO DAILY 11/08/12 Duloxetine HCl 60 mg PO DAILY 06/02/16 Rivaroxaban [Xarelto] 20 mg PO DAILY 06/02/16 Atorvastatin Calcium 40 mg PO DAILY 09/25/17 Carvedilol 25 mg PO DAILY 09/25/17 Diltiazem HCl [Diltiazem ER] 180 mg PO DAILY 09/25/17 Furosemide [Lasix 40 mg Tablet] 40 mg PO DAILY 09/25/17 Aripiprazole [Abilify 15 mg Tablet] 15 mg PO DAILY 07/18/18 Losartan Potassium [Cozaar 25 mg Tablet] 25 mg PO DAILY 07/18/18 Omeprazole 20 mg PO DAILY 07/18/18 Allergies/Adverse Reactions: MACRINA Inhibitors [Macrina Inhibitors] Allergy (Severe, Verified 09/25/17 13:05) Facial swelling enalapril [Enalapril] Adverse Reaction (Severe, Verified 09/25/17 13:05) periorbital edema lisinopril Adverse Reaction (Severe, Verified 09/25/17 13:05) periorbital edema Review of Systems Eyes: ABSENT: visual disturbances Ears: ABSENT: hearing changes Cardiovascular: PRESENT: dyspnea on exertion, edema, orthropnea Respiratory: ABSENT: cough, hemoptysis Gastrointestinal: ABSENT: abdominal pain, constipation, diarrhea, hematemesis, hematochezia, nausea, vomiting Genitourinary: ABSENT: dysuria, hematuria Musculoskeletal: ABSENT: joint swelling Integumentary: ABSENT: rash, wounds Neurological: ABSENT: abnormal gait, abnormal speech, confusion, dizziness, focal weakness, syncope Psychiatric: ABSENT: anxiety, depression, homidical ideation, suicidal ideation Endocrine: ABSENT: cold intolerance, heat intolerance, menstrual abnormalities, polydipsia, polyuria Hematologic/Lymphatic: ABSENT: easy bleeding, easy bruising, lymphadenopathy Physical Exam Vital Signs: Temp Pulse Resp BP Pulse Ox 98.7 F 83 24 H 120/89 H 100 07/18/18 18:31 07/18/18 18:31 07/18/18 18:31 07/18/18 18:31 07/18/18 18:31 Intake & Output 07/17/18 07/18/18 07/19/18 06:59 06:59 06:59 Weight 133.5 kg General appearance: PRESENT: mild distress Head exam: PRESENT: atraumatic, normocephalic Eye exam: PRESENT: conjunctiva pink, EOMI, PERRLA Mouth exam: PRESENT: moist, tongue midline Neck exam: PRESENT: full ROM Respiratory exam: PRESENT: crackles Cardiovascular exam: PRESENT: RRR, +S1, +S2, systolic murmur GI/Abdominal exam: PRESENT: normal bowel sounds, soft Rectal exam: PRESENT: deferred Extremities exam: PRESENT: pedal edema Neurological exam: PRESENT: alert, CN II-XII grossly intact Skin exam: PRESENT: dry, intact, warm Results Impressions: Chest X-Ray 07/18/18 17:21 IMPRESSION: NO ACUTE RADIOGRAPHIC FINDING IN THE CHEST. Assessment & Plan - Diagnosis (1) Acute systolic heart failure Is this a current diagnosis for this admission?: Yes Plan: He has decompensated chronic systolic heart failure, patient is admitted to be treated with furosemide infusion, continue other medication (2) Chronic atrial fibrillation Is this a current diagnosis for this admission?: Yes
[2018-07-18] MEDS ORDERED: ATORVASTATIN CALCIUM 40 MG TABLET PO ONE (23:59)
[2018-07-19] MEDS: LANSOPRAZOLE 15 MG TAB.RAP.DR PO SCH (06:36)
[2018-07-19 07:21] LABS: ANION GAP 11 (5-19); BLOOD UREA NITROGEN 24 mg/dL (7-20); CALCIUM 9.4 mg/dL (8.4-10.2); CARBON DIOXIDE 27 mmol/L (22-30); CHLORIDE 104 mmol/L (98-107); GLUCOSE 105 mg/dL (75-110); SODIUM 141.9 mmol/L (137-145)
[2018-07-19] MEDS: ARIPIPRAZOLE 5 MG TABLET PO SCH (09:55)
[2018-07-19] MEDS: DILTIAZEM HCL 180 MG CAPSULE.CR PO SCH (09:56)
[2018-07-19] MEDS: RIVAROXABAN 10 MG TABLET PO SCH (09:56)
[2018-07-19] MEDS: DULOXETINE HCL 30 MG CAPSULE.DR PO SCH (09:56)
[2018-07-19] MEDS: LOSARTAN POTASSIUM 25 MG TABLET PO SCH (09:57)
[2018-07-19] MEDS: CARVEDILOL 12.5 MG TABLET PO SCH (09:57)
[2018-07-19] MEDS ORDERED: (PENDING PHARMACY ID) (Duloxetine Hcl [Duloxetine Hcl] 60 MG) PO SCH (10:00)
[2018-07-19] MEDS: NORMAL SALINE 250 ML with FUROSEMIDE 250 MG IV PRN ×2 (18:50)
[2018-07-19] MEDS: TEMAZEPAM 15 MG CAPSULE PO SCH (21:44)
[2018-07-19] MEDS: ATORVASTATIN CALCIUM 40 MG TABLET PO SCH (21:44)
[2018-07-20] MEDS: LANSOPRAZOLE 15 MG TAB.RAP.DR PO SCH (05:20)
[2018-07-20] MEDS: ARIPIPRAZOLE 5 MG TABLET PO SCH (09:29)
[2018-07-20] MEDS: CARVEDILOL 12.5 MG TABLET PO SCH (09:30)
[2018-07-20] MEDS: DILTIAZEM HCL 180 MG CAPSULE.CR PO SCH (09:30)
[2018-07-20] MEDS: LOSARTAN POTASSIUM 25 MG TABLET PO SCH (09:31)
[2018-07-20] MEDS: DULOXETINE HCL 30 MG CAPSULE.DR PO SCH (09:31)
[2018-07-20] MEDS: RIVAROXABAN 10 MG TABLET PO SCH (09:31)
[2018-07-20 17:15] LABS: ABSOLUTE BASOPHILS # (AUTO) 0.1 10^3/uL (0.0-0.2); ABSOLUTE EOSINOPHILS # (AUTO) 0.2 10^3/uL (0.0-0.6); ABSOLUTE LYMPHOCYTES (AUTO) 1.8 10^3/uL (0.5-4.7); ABSOLUTE MONOCYTES (AUTO) 1.1 10^3/uL (0.1-1.4); ABSOLUTE NEUT (AUTO) 11.9 10^3/uL (1.7-8.2); BASOPHILS % (AUTO) 0.6 % (0-2); EOSINOPHILS % (AUTO) 1.6 % (0-6); HEMATOCRIT 44.5 % (37.9-51.0); LYMPHOCYTES % (AUTO) 11.7 % (13-45); MEAN CORPUSCULAR HGB CONC 33.7 g/dL (32.0-36.0); MEAN CORPUSCULAR VOLUME 89 fl (80-97); MONOCYTES % (AUTO) 7.3 % (3-13); PLATELET COUNT 302 10^3/uL (150-450); RED BLOOD COUNT 4.99 10^6/uL (4.35-5.55); RED CELL DISTRIBUTION WIDTH 13.7 % (11.5-14.0); SEGMENTED NEUTROPHILS % (AUTO) 78.8 % (42-78); TOTAL CELLS COUNTED % (AUTO) 100 %; WHITE BLOOD COUNT 15.1 10^3/uL (4.0-10.5)
[2018-07-20 17:41] LABS: ALANINE AMINOTRANSFERASE 19 U/L (21-72); ALBUMIN 4.4 g/dL (3.5-5.0); ALKALINE PHOSPHATASE 108 U/L (38-126); ANION GAP 14 (5-19); ASPARTATE AMINO TRANSFERASE 27 U/L (17-59); BILIRUBIN,DIRECT 0.4 mg/dL (0.0-0.4); BILIRUBIN,TOTAL 1.1 mg/dL (0.2-1.3); BLOOD UREA NITROGEN 38 mg/dL (7-20); CALCIUM 9.1 mg/dL (8.4-10.2); CARBON DIOXIDE 30 mmol/L (22-30); CHLORIDE 96 mmol/L (98-107); GLUCOSE 124 mg/dL (75-110); SODIUM 140.2 mmol/L (137-145); TOTAL PROTEIN 7.4 g/dL (6.3-8.2)
--- NOTE | 2018-07-20 19:32 | PDOC DISCHARGE SUMMARY ---
General - Admit/Disc Date/PCP Admission Date/Primary Care Provider: 07/18/18 18:15 JUANITO PEARCE MD Discharge Date: 07/21/18 - Discharge Diagnosis (1) Acute systolic heart failure Is this a current diagnosis for this admission?: Yes (2) Chronic atrial fibrillation Is this a current diagnosis for this admission?: Yes - Additional Information Discharge Diet: Cardiac Discharge Activity: Activity As Tolerated, Balance Activity w/Rest, Weigh Daily Prescriptions: Carvedilol 25 mg PO BID #60 tablet Home Medications: Spironolactone 50 mg PO DAILY 11/08/12 Duloxetine HCl 60 mg PO DAILY 06/02/16 Rivaroxaban [Xarelto] 20 mg PO DAILY 06/02/16 Atorvastatin Calcium 40 mg PO DAILY 09/25/17 Furosemide [Lasix 40 mg Tablet] 40 mg PO DAILY 09/25/17 Aripiprazole [Abilify 15 mg Tablet] 15 mg PO DAILY 07/18/18 Losartan Potassium [Cozaar 25 mg Tablet] 25 mg PO DAILY 07/18/18 Omeprazole 20 mg PO DAILY 07/18/18 Carvedilol 25 mg PO BID #60 tablet 07/20/18 History of Present Illness History of Present Illness: MALAIKA SARGENT is a 58 year old male he has chronic systolic heart failure, chronic atrial fibrillation on chronic anticoagulation, he came to the office for evaluation of progressive swelling of both lower extremities despite increasing the dosage of furosemide. In the office he was evaluated he also admitted to history of progressive shortness of breath, orthopnea and PND. He was in CHF in the office, he was advised admission to the hospital for the management of a compensated chronic systolic heart failure. Patient recently was diagnosed with some form of dementia, he recently left his residence in the middle of the night, barefooted walking aimlessly on he has no memory of that behavior. I saw him in the office about 2 weeks ago for the evaluation of these problems, CT head was done it was negative for any acute pathology, there was no metabolic explanation for his symptoms based on comprehensive metabolic panel that was drawn in the office and evaluated. It is very possible that this patient is not compliant with his medication especially with underlying cognitiv e impairment he is also very sedentary no active lifestyle. Hospital Course Hospital Course: Patient was admitted for the management of decompensated chronic systolic heart failure, he was treated with furosemide infusion. Patient diuresed very well, he has less shortness of breath, is no longer orthopneic.There is slight worsening of serum creatinine, which is expected with intravenous Lasix infusion Physical Exam Vital Signs: Temp Pulse Resp BP Pulse Ox 98.6 F 84 24 H 108/82 95 07/20/18 15:45 07/20/18 15:45 07/20/18 15:45 07/20/18 15:45 07/20/18 15:45 Intake & Output 07/19/18 07/20/18 07/21/18 06:59 06:59 06:59 Intake Total 1165 688 472 Output Total 1200 Balance -35 688 472 Weight 133.5 kg General appearance: PRESENT: no acute distress Eye exam: PRESENT: PERRLA Ear exam: PRESENT: normal external ear exam Mouth exam: PRESENT: moist, tongue midline Neck exam: PRESENT: full ROM Respiratory exam: PRESENT: clear to auscultation johnson Cardiovascular exam: PRESENT: RRR, +S1, +S2 Vascular exam: PRESENT: normal capillary refill GI/Abdominal exam: PRESENT: normal bowel sounds, soft Rectal exam: PRESENT: deferred Neurological exam: PRESENT: alert, awake, oriented to person, oriented to place, oriented to time, oriented to situation, CN II-XII grossly intact Psychiatric exam: PRESENT: appropriate affect, normal mood Skin exam: PRESENT: dry, intact, warm Results Laboratory Results: 07/20/18 17:05 07/20/18 17:05 07/20/18 07/20/18 17:05 17:05 WBC 15.1 H RBC 4.99 Hgb 15.0 Hct 44.5 MCV 89 MCH 30.0 MCHC 33.7 RDW 13.7 Plt Count 302 Seg Neutrophils % 78.8 H Lymphocytes % 11.7 L Monocytes % 7.3 Eosinophils % 1.6 Basophils % 0.6 Absolute Neutrophils 11.9 H Absolute Lymphocytes 1.8 Absolute Monocytes 1.1 Absolute Eosinophils 0.2 Absolute Basophils 0.1 Sodium 140.2 Potassium 4.0 Chloride 96 L Carbon Dioxide 30 Anion Gap 14 BUN 38 H Creatinine 2.05 H Est GFR ( Amer) 41 L Est GFR (Non-Af Amer) 34 L Glucose 124 H Calcium 9.1 Total Bilirubin 1.1 AST 27 ALT 19 L Alkaline Phosphatase 108 Total Protein 7.4 Albumin 4.4 07/18/18 17:49 NT-Pro-B Natriuret Pep 1270 H Impressions: Chest X-Ray 07/18/18 17:21 IMPRESSION: NO ACUTE RADIOGRAPHIC FINDING IN THE CHEST. Qualifiers - * PATIENT BEING DISCHARGED WITH ANY OF THE FOLLOWING DIAGNOSIS: No
[2018-07-20] MEDS: ATORVASTATIN CALCIUM 40 MG TABLET PO SCH (21:19)
[2018-07-20] MEDS: TEMAZEPAM 15 MG CAPSULE PO SCH (21:19)
[2018-07-21] MEDS: LANSOPRAZOLE 15 MG TAB.RAP.DR PO SCH (05:39)
[2018-07-21] MEDS: ARIPIPRAZOLE 5 MG TABLET PO SCH (09:33)
[2018-07-21] MEDS: DILTIAZEM HCL 180 MG CAPSULE.CR PO SCH (09:33)
[2018-07-21] MEDS: DULOXETINE HCL 30 MG CAPSULE.DR PO SCH (09:34)
[2018-07-21] MEDS: LOSARTAN POTASSIUM 25 MG TABLET PO SCH (09:34)
[2018-07-21] MEDS: CARVEDILOL 12.5 MG TABLET PO SCH (09:34)
[2018-07-21] MEDS: RIVAROXABAN 10 MG TABLET PO SCH (09:35)
[2018-07-21 12:14] VITALS: BP 127/99
== END 2018-07-21 12:45 | disposition home or self-care (01) ==
LOC: ER 16:57 → EH 18:15 → 5 18:38
PROVIDERS: ADMIT Internal Medicine; ATTEND Internal Medicine
DX: I11.0 Hypertensive heart disease with heart failure (principal); I50.23 Acute on chronic systolic (congestive) heart failure; I48.2 Chronic atrial fibrillation; I25.10 Atherosclerotic heart disease of native coronary artery without angina pectoris; F03.90 Unspecified dementia, unspecified severity, without behavioral disturbance, psychotic disturbance, mood disturbance, and anxiety; K21.9 Gastro-esophageal reflux disease without esophagitis; E78.5 Hyperlipidemia, unspecified; I25.2 Old myocardial infarction; Z23 Encounter for immunization; Z79.899 Other long term (current) drug therapy; Z79.02 Long term (current) use of antithrombotics/antiplatelets; Z90.49 Acquired absence of other specified parts of digestive tract; Z82.49 Family history of ischemic heart disease and other diseases of the circulatory system; Z95.810 Presence of automatic (implantable) cardiac defibrillator
CPT/HCPCS: 99285; 36415 ×3; 83735; 85025 ×2; 80048; 80053 ×2; 83880; 71046; 90686; G0008; A9270 ×23; J1940 ×2; J7050 ×2; 90471; G0378; G0379; J3490

== ENCOUNTER → 2018-10-11 | Outpatient (CLI) | payer MEDICARE, OTHER ==
--- NOTE | 2018-10-11 09:59 | RADIOLOGY REPORT (SQ) ---
EXAM DESCRIPTION: FOOT LEFT COMPLETE COMPLETED DATE/TIME: 10/11/2018 9:21 am REASON FOR STUDY: STRESS FRACTURE, LEFT FOOT, INITIAL ENCOUNTER FOR FRACTURE COMPARISON: None. NUMBER OF VIEWS: Three views left foot. LIMITATIONS: None. FINDINGS: There is no acute or significant bone, joint or soft tissue abnormality. OTHER: No other significant finding. IMPRESSION: NORMAL STUDY. TECHNICAL DOCUMENTATION: JOB ID: [id number] Reading location - IP/workstation name: [email or web address]
== END ==
LOC: RAD 08:53
PROVIDERS: ATTEND Podiatrist Foot & Ankle Surgery
DX: M84.375A Stress fracture, left foot, initial encounter for fracture (principal)

== ENCOUNTER 2019-02-25 14:29 | Emergency (ER) | payer MEDICARE, OTHER ==
[2019-02-25] MEDS ORDERED: NAPROXEN 250 MG TABLET PO ONE (15:26)
--- NOTE | 2019-02-25 15:29 | ER Document Report ---
HPI - HPI Patient complains to provider of: left foot pain Time Seen by Provider: 02/25/19 15:17 Pain Level: 4 Context: Patient is a 51-year-old male presents to the emergency department for left anterior foot pain. Patient states he has had left anterior foot pain for the last couple of days. States the last time he had this pain his dump motor operator told him he had gout. Placed him on medication and he felt better in the last couple of days. Patient states he also was told to wear a brace on his left lower extremity. Patient states he found the brace and applied it to his left lower extremity this morning. Patient denies any redness, swelling, ecchymosis, trauma to his right lower extremity. Patient denies any ankle pain or pain in his toes. When asked where the patient's pain is he points to the dorsal aspect of his Foot. - CONSTITUTIONAL Constitutional: DENIES: Fever, Chills - REPRODUCTIVE Reproductive: DENIES: : - MUSCULOSKELETAL Musculoskeletal: REPORTS: Extremity pain - left foot Past Medical History - General Information source: Patient - Social History Smoking Status: Never Smoker Chew tobacco use (# tins/day): No Frequency of alcohol use: None Drug Abuse: None Family History: CAD Patient has suicidal ideation: No Patient has homicidal ideation: No - Past Medical History Cardiac Medical History: Reports: Hx Atrial Fibrillation, Hx Congestive Heart Failure, Hx Coronary Artery Disease, Hx Heart Attack - 2011, Hx Hypercholesterolemia, Hx Hypertension - MEDS Denies: Hx Peripheral Vascular Disease, Hx Pulmonary Embolism, Hx Heart Murmur Pulmonary Medical History: Reports: Hx Bronchitis, Hx Pneumonia Denies: Hx Asthma, Hx COPD, Hx Respiratory Failure, Hx Sleep Apnea, Hx Tuberculosis Neurological Medical History: Reports: Hx Cerebrovascular Accident - 2011 OR 2012, Hx Seizures - LAST WEEK EMT TO HOUSE,TREATED TOLD TO GO TO [facility] Renal/ Medical History: Reports: Hx Kidney Stones. Denies: Hx Benign Prostatic Hyperplasia, Hx End Stage Renal Disease, Hx Peritoneal Dialysis Malignancy Medical History: Denies Hx Lung Cancer GI Medical History: Reports: Hx Gastroesophageal Reflux Disease. Denies: Hx Crohn's Disease, Hx Hepatitis, Hx Hiatal Hernia, Hx Irritable Bowel, Hx Liver Failure, Hx Pancreatitis, Hx Ulcer Musculoskeletal Medical History: Denies Hx Arthritis, Denies Hx Fibromyalgia, Reports Hx Multiple Sclerosis, Denies Hx Muscular Dystrophy Psychiatric Medical History: Reports: Hx Bipolar Disorder Denies: Hx Dementia, Hx Depression, Hx Post Traumatic Stress Disorder, Hx Schizophrenia Traumatic Medical History: Denies: Hx Fractures Infectious Medical History: Denies: Hx Hepatitis Past Surgical History: Reports: Hx Appendectomy, Hx Bowel Surgery, Hx Cardiac Catheterization, Hx Cardiac Surgery, Hx Cholecystectomy, Hx Internal Defibrillator, Hx Pacemaker, Hx Tonsillectomy. Denies: Hx Colostomy, Hx Coronary Artery Bypass Graft, Hx Gastric Bypass Surgery, Hx Herniorrhaphy, Hx Open Heart Surgery - Immunizations Immunizations up to date: Yes Hx Diphtheria, Pertussis, Tetanus Vaccination: Yes Hx Pneumococcal Vaccination: 08/01/08 Vertical Provider Document - CONSTITUTIONAL Agree With Documented VS: Yes Notes: GENERAL: Alert, interacts well. No acute distress. HEAD: Normocephalic, atraumatic. EYES: Pupils equal, round, and reactive to light. Extraocular movements intact. ENT: Oral mucosa moist, tongue midline. NECK: Full range of motion. Supple. Trachea midline. LUNGS: Clear to auscultation bilaterally, no wheezes, rales, or rhonchi. No respiratory distress. HEART: Regular rate and rhythm. No murmur ABDOMEN: Soft, non-tender. Non-distended. Bowel sounds present in all 4 quadrants. EXTREMITIES: Moves all 4 extremities spontaneously. No edema, normal radial and dorsalis pedis pulses bilaterally. No cyanosis. No erythema, warmth, ecchymosis noted to patient's left ankle. Full range of motion left ankle. No pain upon palpation or movement of all 5 toes on the left foot. Patient points to pain on the dorsal aspect of the left foot. No erythema, ecchymosis, warmth noted. PMS equal bilateral lower extremities. BACK: no cervical, thoracic, lumbar midline tenderness. No saddle anesthesia, normal distal neurovascular exam. NEUROLOGICAL: Alert and oriented x3. Normal speech. PSYCH: Normal affect, normal mood. SKIN: Warm, dry, normal turgor. No rashes or lesions noted. - INFECTION CONTROL TRAVEL OUTSIDE OF THE [place] IN LAST 30 DAYS: No Course - Re-evaluation Re-evalutation: 02/25/19 15:27 Pt. creatinine clearance based on a latest creatinine we have in our computer system from 2018 at 2.05 is 33 mL/minute. Discussed use of naproxen for potential gout flare. Discussed close follow-up with patient's dump motor operator tomorrow. Patient voices understanding. At this time will discharge with return precautions and follow-up recommendations. Verbal discharge instructions given a the bedside and opportunity for questions given. Medication warnings reviewed. Patient is in agreement with this plan and has verbalized understanding of return precautions and the need for primary care follow-up in the next 24-72 hours. This medical record was dictated with voice recognizing software. There may be grammatical, syntax errors that are unintended. 02/25/19 16:11 Foot X-Ray 02/25/19 15:22 IMPRESSION: NEGATIVE STUDY OF THE LEFT FOOT. NO RADIOGRAPHIC EVIDENCE OF ACUTE INJURY. Discussed using naproxen prescription and following up with dump motor operator. At this time will discharge with return precautions and follow-up recommendations. Verbal discharge instructions given a the bedside and opportunity for questions given. Medication warnings reviewed. Patient is in agreement with this plan and has verbalized understanding of return precautions and the need for primary care follow-up in the next 24-72 hours. This medical record was dictated with voice recognizing software. There may be grammatical, syntax errors that are unintended. - Vital Signs Vital signs: Temp Pulse Resp BP Pulse Ox 98.7 F 54 L 20 135/90 H 93 02/25/19 15:03 02/25/19 15:03 02/25/19 15:03 02/25/19 15:03 02/25/19 15:03 Discharge - Discharge Clinical Impression: Left foot pain Condition: Stable Disposition: HOME, SELF-CARE Additional Instructions: You have been seen and treated in the emergency department for left lower foot pain. Your x-rays revealed no signs of fractures. As we discussed the location of your pain is not typical gout flareup. The treatment for gout flareup is nap roxen. Please take this medication as prescribed. Please follow-up with your dump motor operator in the next 24 to 48 hours. Please return to the emergency room for any further concerns. Prescriptions: Naproxen 500 mg PO BID #20 tablet Referrals: JUANITO PEARCE MD [Primary Care Provider] - Follow up as needed
--- NOTE | 2019-02-25 16:01 | RADIOLOGY REPORT (SQ) ---
EXAM DESCRIPTION: FOOT LEFT COMPLETE COMPLETED DATE/TIME: 02/25/2019 3:45 pm REASON FOR STUDY: pain COMPARISON: None. NUMBER OF VIEWS: Three views. TECHNIQUE: AP, lateral and oblique radiographic images acquired of the left foot. LIMITATIONS: None. FINDINGS: MINERALIZATION: Normal. BONES: No acute fracture or dislocation. No worrisome bone lesions. JOINTS: No effusions. SOFT TISSUES: No soft tissue swelling. No foreign body. OTHER: No other significant finding. IMPRESSION: NEGATIVE STUDY OF THE LEFT FOOT. NO RADIOGRAPHIC EVIDENCE OF ACUTE INJURY. TECHNICAL DOCUMENTATION: JOB ID: [id number] [employer]- All Rights Reserved Reading location - IP/workstation name: [email or web address]
[2019-02-25 16:23] VITALS: BP 112/89
== END 2019-02-25 16:23 | disposition home or self-care (01) ==
LOC: ER 14:29
DX: M79.672 Pain in left foot (principal); I25.10 Atherosclerotic heart disease of native coronary artery without angina pectoris; I10 Essential (primary) hypertension; Z87.39 Personal history of other diseases of the musculoskeletal system and connective tissue
CPT/HCPCS: 99283; 73630; A9270

== ENCOUNTER 2019-04-28 14:45 | Emergency (ER) | payer MEDICARE, OTHER ==
[2019-04-28] MEDS ORDERED: PREDNISONE 20 MG TABLET PO ONE (15:50)
[2019-04-28] MEDS ORDERED: IPRATROPIUM/ALBUTEROL 0.5-2.5 MG/3 ML AMPUL NEB ONE (15:50)
[2019-04-28] MEDS ORDERED: OXYCODONE-ACETAMINOPHEN 5-325 MG TABLET PO ONE (15:51)
--- NOTE | 2019-04-28 15:53 | ER Document Report ---
ED Medical Screen (RME) - General Chief Complaint: Foot Injury Stated Complaint: FOOT PAIN Time Seen by Provider: 04/28/19 15:40 Primary Care Provider: JUANITO PEARCE MD [Primary Care Provider] - Follow up as needed Mode of Arrival: Wheelchair Information source: Patient Notes: Patient presents complaining of bilateral foot pain for the past 2 days. Patient complains of pain to the entire plantar surface of the right foot and to the toes of the left foot. No erythema, no swelling noted to feet. Patient with audible wheezing in triage and tachycardia. No fever. hx: Hypertension, asthma, [place], dyslipidemia, A. fib, congestive heart failure I have greeted and performed a rapid initial assessment of this patient. A comprehensive ED assessment and evaluation of the patient, analysis of test results and completion of the medical decision making process will be conducted by additional ED providers. TRAVEL OUTSIDE OF THE [place] IN LAST 30 DAYS: No - Related Data Allergies/Adverse Reactions: JEOVANY Inhibitors [Jeovany Inhibitors] Allergy (Severe, Verified 02/25/19 14:37) Facial swelling enalapril [Enalapril] Adverse Reaction (Severe, Verified 02/25/19 14:37) periorbital edema lisinopril Adverse Reaction (Severe, Verified 02/25/19 14:37) periorbital edema Past Medical History - Past Medical History Cardiac Medical History: Reports: Hx Atrial Fibrillation, Hx Congestive Heart Failure, Hx Coronary Artery Disease, Hx Heart Attack - 2011, Hx Hypercholesterolemia, Hx Hypertension - MEDS Denies: Hx Peripheral Vascular Disease, Hx Pulmonary Embolism, Hx Heart Murmur Pulmonary Medical History: Reports: Hx Bronchitis, Hx Pneumonia Denies: Hx Asthma, Hx COPD, Hx Respiratory Failure, Hx Sleep Apnea, Hx Tuberculosis Neurological Medical History: Reports: Hx Cerebrovascular Accident - 2011 OR 2012, Hx Seizures - LAST WEEK EMT TO HOUSE,TREATED TOLD TO GO TO [facility]. Denies: Hx Parkinson's Disease Renal/ Medical History: Reports: Hx Kidney Stones. Denies: Hx Benign Prostatic Hyperplasia, Hx End Stage Renal Disease, Hx Peritoneal Dialysis Malignancy Medical History: Denies Hx Lung Cancer GI Medical History: Reports: Hx Gastroesophageal Reflux Disease. Denies: Hx Crohn's Disease, Hx Hepatitis, Hx Hiatal Hernia, Hx Irritable Bowel, Hx Liver Failure, Hx Pancreatitis, Hx Ulcer Musculoskeltal Medical History: Denies Hx Arthritis, Denies Hx Fibromyalgia, Reports Hx Multiple Sclerosis, Denies Hx Muscular Dystrophy Psychiatric Medical History: Reports: Hx Bipolar Disorder Denies: Hx Dementia, Hx Depression, Hx Post Traumatic Stress Disorder, Hx Schizophrenia Traumatic Medical History: Denies: Hx Fractures Infectious Medical History: Denies: Hx Hepatitis Past Surgical History: Reports: Hx Appendectomy, Hx Bowel Surgery, Hx Cardiac Catheterization, Hx Cardiac Surgery, Hx Cholecystectomy, Hx Internal Defibrillator, Hx Pacemaker, Hx Tonsillectomy. Denies: Hx Colostomy, Hx Coronary Artery Bypass Graft, Hx Gastric Bypass Surgery, Hx Herniorrhaphy, Hx Open Heart Surgery - Immunizations Immunizations up to date: Yes Hx Diphtheria, Pertussis, Tetanus Vaccination: Yes Physical Exam - Vital signs Vitals: Temp Pulse Resp BP Pulse Ox 99.0 F 110 H 20 139/96 H 95 04/28/19 14:54 04/28/19 14:54 04/28/19 14:54 04/28/19 14:54 04/28/19 14:54 - General Notes: Audible wheezing, generalized tenderness to the entire surface of right foot, tenderness to the toes of left foot Course - Vital Signs Vital signs: Temp Pulse Resp BP Pulse Ox 99.0 F 110 H 20 139/96 H 95 04/28/19 14:54 04/28/19 14:54 04/28/19 14:54 04/28/19 14:54 04/28/19 14:54 Doctor's Discharge - Discharge Referrals: JUANITO PEARCE MD [Primary Care Provider] - Follow up as needed
[2019-04-28 16:12] LABS: ABSOLUTE BASOPHILS # (AUTO) 0.1 10^3/uL (0.0-0.2); ABSOLUTE EOSINOPHILS # (AUTO) 0.7 10^3/uL (0.0-0.6); ABSOLUTE LYMPHOCYTES (AUTO) 1.4 10^3/uL (0.5-4.7); ABSOLUTE MONOCYTES (AUTO) 0.9 10^3/uL (0.1-1.4); ABSOLUTE NEUT (AUTO) 9.3 10^3/uL (1.7-8.2); BASOPHILS % (AUTO) 0.8 % (0-2); EOSINOPHILS % (AUTO) 5.6 % (0-6); HEMATOCRIT 43.8 % (37.9-51.0); HEMOGLOBIN 14.5 g/dL (13.5-17.0); LYMPHOCYTES % (AUTO) 11.3 % (13-45); MEAN CORPUSCULAR HEMOGLOBIN 28.7 pg (27.0-33.4); MEAN CORPUSCULAR HGB CONC 33.1 g/dL (32.0-36.0); MEAN CORPUSCULAR VOLUME 87 fl (80-97); MONOCYTES % (AUTO) 7.3 % (3-13); PLATELET COUNT 252 10^3/uL (150-450); RED BLOOD COUNT 5.06 10^6/uL (4.35-5.55); RED CELL DISTRIBUTION WIDTH 15.2 % (11.5-14.0); TOTAL CELLS COUNTED % (AUTO) 100 %; WHITE BLOOD COUNT 12.4 10^3/uL (4.0-10.5)
[2019-04-28 16:27] LABS: ALBUMIN 3.9 g/dL (3.5-5.0); ALKALINE PHOSPHATASE 101 U/L (38-126); ANION GAP 7 (5-19); ASPARTATE AMINO TRANSFERASE 18 U/L (17-59); BILIRUBIN,DIRECT 0.2 mg/dL (0.0-0.4); BILIRUBIN,TOTAL 0.6 mg/dL (0.2-1.3); BLOOD UREA NITROGEN 20 mg/dL (7-20); CALCIUM 9.8 mg/dL (8.4-10.2); CARBON DIOXIDE 30 mmol/L (22-30); CHLORIDE 104 mmol/L (98-107); GLUCOSE 91 mg/dL (75-110); TOTAL PROTEIN 6.7 g/dL (6.3-8.2); URIC ACID 7.7 mg/dL (3.5-8.5)
--- NOTE | 2019-04-28 16:28 | RADIOLOGY REPORT (SQ) ---
EXAM DESCRIPTION: CHEST 2 VIEWS COMPLETED DATE/TIME: 04/28/2019 4:15 pm REASON FOR STUDY: wheezing, tachycardia COMPARISON: None. TECHNIQUE: Frontal and lateral radiographic views of the chest acquired. NUMBER OF VIEWS: Two view. LIMITATIONS: None. FINDINGS: LUNGS AND PLEURA: No pneumothorax. No consolidation or pleural effusion. MEDIASTINUM AND HILAR STRUCTURES: Stable. HEART AND VASCULAR STRUCTURES: Stable. BONES: No acute findings. HARDWARE: Cardiac pacer. OTHER: No other significant finding. IMPRESSION: NO ACUTE FINDINGS. TECHNICAL DOCUMENTATION: JOB ID: [id number] [place]-72 2010 [employer]- All Rights Reserved Reading location - IP/workstation name: [email or web address]
--- NOTE | 2019-04-28 20:15 | ER Document Report ---
ED General - General Chief Complaint: Foot Pain Stated Complaint: FOOT PAIN Time Seen by Provider: 04/28/19 15:40 Primary Care Provider: JUANITO PEARCE MD [Primary Care Provider] - Follow up as needed Mode of Arrival: Wheelchair Notes: RME NOTE: Patient presents complaining of bilateral foot pain for the past 2 days. Patient complains of pain to the entire plantar surface of the right foot and to the toes of the left foot. No erythema, no swelling noted to feet. Patient with audible wheezing in triage and tachycardia. No fever. hx: Hypertension, asthma, [place], dyslipidemia, A. fib, congestive heart failure MY HPI: Patient is a 59-year-old male presents to the emergency department for generalized pain in his left toes and the bottom of his right foot. Patient states he does have a history of gout but is denying any history of diabetes to include diabetic neuropathy. Patient states "I think my gout is acting up." Patient was initially noted to be wheezing during triage. Upon my assessment patient has clear and equal lung sounds in all marcum. He is denying any respir atory distress or chest pain. Patient states that his feet feel better after treatments in the emergency room. TRAVEL OUTSIDE OF THE [place] IN LAST 30 DAYS: No - Related Data Allergies/Adverse Reactions: JEOVANY Inhibitors [Jeovany Inhibitors] Allergy (Severe, Verified 02/25/19 14:37) Facial swelling enalapril [Enalapril] Adverse Reaction (Severe, Verified 02/25/19 14:37) periorbital edema lisinopril Adverse Reaction (Severe, Verified 02/25/19 14:37) periorbital edema Past Medical History - General Information source: Patient - Social History Smoking Status: Never Smoker Frequency of alcohol use: None Drug Abuse: None Family History: CAD Patient has suicidal ideation: No Patient has homicidal ideation: No - Past Medical History Cardiac Medical History: Reports: Hx Atrial Fibrillation, Hx Congestive Heart Failure, Hx Coronary Artery Disease, Hx Heart Attack - 2011, Hx Hypercholesterolemia, Hx Hypertension - MEDS Denies: Hx Peripheral Vascular Disease, Hx Pulmonary Embolism, Hx Heart Murmur Pulmonary Medical History: Reports: Hx Bronchitis, Hx Pneumonia Denies: Hx Asthma, Hx COPD, Hx Respiratory Failure, Hx Sleep Apnea, Hx Tuberculosis Neurological Medical History: Reports: Hx Cerebrovascular Accident - 2011 OR 2012, Hx Seizures - LAST WEEK EMT TO HOUSE,TREATED TOLD TO GO TO [facility]. Denies: Hx Parkinson's Disease Renal/ Medical History: Reports: Hx Kidney Stones. Denies: Hx Benign Prostatic Hyperplasia, Hx End Stage Renal Disease, Hx Peritoneal Dialysis Malignancy Medical History: Denies Hx Lung Cancer GI Medical History: Reports: Hx Gastroesophageal Reflux Disease. Denies: Hx Crohn's Disease, Hx Hepatitis, Hx Hiatal Hernia, Hx Irritable Bowel, Hx Liver Failure, Hx Pancreatitis, Hx Ulcer Musculoskeletal Medical History: Denies Hx Arthritis, Denies Hx Fibromyalgia, Reports Hx Multiple Sclerosis, Denies Hx Muscular Dystrophy Psychiatric Medical History: Reports: Hx Bipolar Disorder Denies: Hx Dementia, Hx Depression, Hx Post Traumatic Stress Disorder, Hx Schizophrenia Traumatic Medical History: Denies: Hx Fractures Infectious Medical History: Denies: Hx Hepatitis Past Surgical History: Reports: Hx Appendectomy, Hx Bowel Surgery, Hx Cardiac Catheterization, Hx Cardiac Surgery, Hx Cholecystectomy, Hx Internal Defibrillator, Hx Pacemaker, Hx Tonsillectomy. Denies: Hx Colostomy, Hx Coronary Artery Bypass Graft, Hx Gastric Bypass Surgery, Hx Herniorrhaphy, Hx Open Heart Surgery - Immunizations Immunizations up to date: Yes Hx Diphtheria, Pertussis, Tetanus Vaccination: Yes Hx Pneumococcal Vaccination: 08/01/08 Review of Systems - Review of Systems Constitutional: denies: Fever EENT: No symptoms reported Cardiovascular: No symptoms reported Respiratory: See HPI Gastrointestinal: No symptoms reported Genitourinary: No symptoms reported Male Genitourinary: No symptoms reported Musculoskeletal: See HPI Skin: See HPI Hematologic/Lymphatic: No symptoms reported Neurological/Psychological: No symptoms reported Physical Exam - Vital signs Vitals: Temp Pulse Resp BP Pulse Ox 99.0 F 110 H 20 139/96 H 95 04/28/19 14:54 04/28/19 14:54 04/28/19 14:54 04/28/19 14:54 04/28/19 14:54 - Notes Notes: GENERAL: Morbidly obese, alert, interacts well. No acute distress. HEAD: Normocephalic, atraumatic. EYES: Pupils equal, round, and reactive to light. Extraocular movements intact. ENT: Oral mucosa moist, tongue midline. [Nares patent, no nasal septal hematoma, TM's intact.] NECK: Full range of motion. Supple. Trachea midline. LUNGS: Clear to auscultation bilaterally, no wheezes, rales, or rhonchi. No respiratory distress. HEART: Regular rate and rhythm. No murmur ABDOMEN: Soft, non-tender. Non-distended. Bowel sounds present in all 4 q uadrants. EXTREMITIES: Moves all 4 extremities spontaneously. No edema, normal radial and dorsalis pedis pulses bilaterally. No cyanosis. Right lower extremity exam is unremarkable, capillary refill less than 2 seconds distally all 5 toes right lower extremity. Patient's left great toe MCP joint does appear erythematous, no fluctuance noted. Distal capillary refill less than 2 seconds. BACK: no cervical, thoracic, lumbar midline tenderness. No saddle anesthesia, normal distal neurovascular exam. NEUROLOGICAL: Alert and oriented x3. Normal speech. cranial nerves II through XII grossly intact. PSYCH: Normal affect, normal mood. SKIN: Warm, dry, normal turgor. Course - Re-evaluation Re-evalutation: 04/28/19 20:06 MD DUPREE Acute Gout Diagnosis Rule states 82.5% prevalence of gout. 04/28/19 20:18 Patient's creatinine clearance is 116. There are no dosing restrictions noted on up-to-date for Naprosyn based on the creatinine clearance. Discussed follow-up with primary care provider and continued care of his acute COPD exacerbation as well as gout flare. Patient is no longer tachycardic, lung sounds are clear and equal in all marcum. At this time will discharge with return precautions and follow-up recommendati ons. Verbal discharge instructions given a the bedside and opportunity for questions given. Medication warnings reviewed. Patient is in agreement with this plan and has verbalized understanding of return precautions and the need for primary care follow-up in the next 24-72 hours. This medical record was dictated with voice recognizing software. There may be grammatical, syntax errors that are unintended. - Vital Signs Vital signs: Temp Pulse Resp BP Pulse Ox 98.5 F 87 20 154/84 H 95 04/28/19 20:30 04/28/19 20:30 04/28/19 20:30 04/28/19 20:30 04/28/19 20:30 - Laboratory Result Diagrams: 04/28/19 15:58 04/28/19 15:58 Laboratory results interpreted by me: 04/28/19 04/28/19 15:58 15:58 WBC 12.4 H RDW 15.2 H Lymph % (Auto) 11.3 L Absolute Neuts (auto) 9.3 H Absolute Eos (auto) 0.7 H Creatinine 1.29 H Est GFR (MDRD) Non-Af 57 L Discharge - Discharge Clinical Impression: COPD exacerbation Gout attack Qualifiers: Gout site: foot Gout etiology: unspecified cause Laterality: unspecified laterality Qualified Code(s): M10.9 - Gout, unspecified Condition: Stable Disposition: HOME, SELF-CARE Instructions: Chronic Obstructive Lung Disease ([facility]), Gout ([facility]), Gout Diet ([facility]) Additional Instructions: As we discussed you have been seen and treated in the emergency department for a gout flareup as well as an exacerbation of your COPD. Please make sure you are taking medications as prescribed. Please also make sure you continue using breathing treatments every 4 hours as needed for respiratory distress. Please follow-up with your primary care provider in the next 24 to 48 hours. Return to the emergency room for any concerns. Prescriptions: Prednisone [Deltasone 20 mg Tablet] 3 tab PO DAILY 5 Days tablet Naproxen 500 mg PO BID #20 tablet Albuterol Sulfate [Proair HFA Inhalation Aerosol 8.5 gm MDI] 2 puff IH Q4H PRN #1 mdi PRN Reason: Referrals: JUANITO PEARCE MD [Primary Care Provider] - Follow up as needed
[2019-04-28 20:37] VITALS: BP 154/84
== END 2019-04-28 20:37 | disposition home or self-care (01) ==
LOC: ER 14:45
DX: M10.9 Gout, unspecified (principal); J44.1 Chronic obstructive pulmonary disease with (acute) exacerbation; M79.675 Pain in left toe(s); M79.671 Pain in right foot; I25.10 Atherosclerotic heart disease of native coronary artery without angina pectoris; I10 Essential (primary) hypertension; Z88.8 Allergy status to other drugs, medicaments and biological substances
CPT/HCPCS: 94640; 99285; 36415; 84550; 85025; 80053; 71046; A9270 ×3; J7512; J7620

== ENCOUNTER 2019-10-27 13:08 | Emergency (ER) | payer MEDICARE, OTHER ==
[2019-10-27 13:16] VITALS: BP 136/102
--- NOTE | 2019-10-27 13:23 | ER Document Report ---
ED General - General Chief Complaint: Mouth Problem Stated Complaint: MOUTH PAIN Primary Care Provider: JUANITO PEARCE MD [Primary Care Provider] - Follow up as needed Notes: Patient is a 59-year-old white male with a past medical history of atrial fibrillation, hypertension who presents to the emergency department with a chief complaint of sores in the mouth for "a while". He is unsure of the specific duration of time. He states the sores are not painful but that he notices them. He states if he eats something spicy he seems to notice them more. He denies any trauma or injury to the mouth. Denies ever having a history of smoking or using chewing tobacco. Denies any fever, nausea, vomiting, diarrhea, chills, night sweats, weight gain, weight loss, change in appetite, tongue or throat swelling or difficulty breathing. TRAVEL OUTSIDE OF THE [place] IN LAST 30 DAYS: No - Related Data Allergies/Adverse Reactions: JEOVANY Inhibitors [Jeovany Inhibitors] Allergy (Severe, Verified 10/27/19 13:12) Facial swelling enalapril [Enalapril] Adverse Reaction (Severe, Verified 10/27/19 13:12) periorbital edema lisinopril Adverse Reaction (Severe, Verified 10/27/19 13:12) periorbital edema Past Medical History - Social History Smoking Status: Never Smoker Chew tobacco use (# tins/day): No Frequency of alcohol use: None Drug Abuse: None Family History: CAD Patient has suicidal ideation: No Patient has homicidal ideation: No - Past Medical History Cardiac Medical History: Reports: Hx Atrial Fibrillation, Hx Congestive Heart Failure, Hx Coronary Artery Disease, Hx Heart Attack - 2011, Hx Hypercholesterolemia, Hx Hypertension - MEDS Denies: Hx Peripheral Vascular Disease, Hx Pulmonary Embolism, Hx Heart Mu rmur Pulmonary Medical History: Reports: Hx Bronchitis, Hx Pneumonia Denies: Hx Asthma, Hx COPD, Hx Respiratory Failure, Hx Sleep Apnea, Hx Tuberculosis Neurological Medical History: Reports: Hx Cerebrovascular Accident - 2011 OR 2012, Hx Seizures - LAST WEEK EMT TO HOUSE,TREATED TOLD TO GO TO [facility]. Denies: Hx Parkinson's Disease Renal/ Medical History: Reports: Hx Kidney Stones. Denies: Hx Benign Prostatic Hyperplasia, Hx End Stage Renal Disease, Hx Peritoneal Dialysis Malignancy Medical History: Denies Hx Lung Cancer GI Medical History: Reports: Hx Gastroesophageal Reflux Disease. Denies: Hx Crohn's Disease, Hx Hepatitis, Hx Hiatal Hernia, Hx Irritable Bowel, Hx Liver Failure, Hx Pancreatitis, Hx Ulcer Musculoskeletal Medical History: Denies Hx Arthritis, Denies Hx Fibromyalgia, Reports Hx Multiple Sclerosis, Denies Hx Muscular Dystrophy Psychiatric Medical History: Reports: Hx Bipolar Disorder Denies: Hx Dementia, Hx Depression, Hx Post Traumatic Stress Disorder, Hx Schizophrenia Traumatic Medical History: Denies: Hx Fractures Infectious Medical History: Denies: Hx Hepatitis Past Surgical History: Reports: Hx Appendectomy, Hx Bowel Surgery, Hx Cardiac Catheterization, Hx Cardiac Surgery, Hx Cholecystectomy, Hx Internal Defibrillator, Hx Pacemaker, Hx Tonsillectomy. Denies: Hx Colostomy, Hx Coronary Artery Bypass Graft, Hx Gastric Bypass Surgery, Hx Herniorrhaphy, Hx Open Heart Surgery - Immunizations Immunizations up to date: Yes Hx Diphtheria, Pertussis, Tetanus Vaccination: Yes Hx Pneumococcal Vaccination: 08/01/08 Review of Systems - Review of Systems EENT: Other - Mouth sores -: Yes All other systems reviewed and negative Physical Exam - Vital signs Vitals: Temp Pulse Resp BP Pulse Ox 98.6 F 100 20 136/102 H 96 10/27/19 13:11 10/27/19 13:11 10/27/19 13:11 10/27/19 13:11 10/27/19 13:11 - General General appearance: Appears well, Alert In distress: None - HEENT Head: Normocephalic, Atraumatic Eyes: Normal Conjunctiva: Normal Extraocular movements intact: Yes Eyelashes: Normal Pupils: PERRL Mouth/Lips: Normal Mucous membranes: Moist, Other - Poor dentition throughout, multiple missing and broken teeth. Widespread gingivitis. Some hypertrophied taste buds noted. Pharynx: Normal Neck: Normal, Supple. No: Anterior cervical chain, Lymphadenopathy, Thyroid nodule, Thyromegally - Respiratory Respiratory status: No respiratory distress Chest status: Nontender Breath sounds: Normal Chest palpation: Normal - Cardiovascular Rhythm: Regular Heart sounds: Normal auscultation - Neurological Neuro grossly intact: Yes Cognition: Normal Orientation: AAOx4 Brandon Coma Scale Eye Opening: Spontaneous Callery Coma Scale Verbal: Oriented Brandon Coma Scale Motor: Obeys Commands Brandon Coma Scale Total: 15 Speech: Normal - Psychological Associated symptoms: Normal affect, Normal mood - Skin Skin Temperature: Warm Skin Moisture: Dry Skin Color: Normal Course - Re-evaluation Re-evalutation: 10/27/19 13:22 Patient reports he just recently a few days ago saw his primary care provider and stated his blood pressure was normal at the office. States his doctor did not mention it. He will continue to closely monitor his blood pressure to the elevated reading today. He has poor oral hygiene. He will be placed on Peridex and referred to dentistry. Counseled him at length regarding the importance of outpatient follow-up and advised to return here or any ER immediately with any new, persistent or worsening symptoms. He verbalized understood and agreed. - Vital Signs Vital signs: Temp Pulse Resp BP Pulse Ox 98.6 F 100 20 136/102 H 96 10/27/19 13:11 10/27/19 13:11 10/27/19 13:11 10/27/19 13:11 10/27/19 13:11 Discharge - Discharge Clinical Impression: Gingivitis, Mouth sores, Elevated blood pressure reading Condition: Stable Disposition: HOME, SELF-CARE Instructions: Dentist Additional Instructions: Follow-up with your regular doctor in 2 to 3 days for reevaluation. Return here or any ER immediately with any new, persistent or worsening symptoms. Please continue to closely monitor your blood pressure and discuss this with your primary care provider. Prescriptions: Chlorhexidine Gluconate [Peridex] 15 ml MM QID #120 ml Referrals: JUANITO PEARCE MD [Primary Care Provider] - Follow up as needed
== END 2019-10-27 13:23 | disposition home or self-care (01) ==
LOC: ER 13:08
DX: K05.10 Chronic gingivitis, plaque induced (principal); K13.79 Other lesions of oral mucosa; I11.0 Hypertensive heart disease with heart failure; I48.91 Unspecified atrial fibrillation; I50.9 Heart failure, unspecified; I25.10 Atherosclerotic heart disease of native coronary artery without angina pectoris; E78.00 Pure hypercholesterolemia, unspecified; I25.2 Old myocardial infarction; Z86.73 Personal history of transient ischemic attack (TIA), and cerebral infarction without residual deficits; Z90.49 Acquired absence of other specified parts of digestive tract; Z95.810 Presence of automatic (implantable) cardiac defibrillator
CPT/HCPCS: 99282

== ENCOUNTER 2019-11-06 21:20 | Emergency (ER) | payer MEDICARE, OTHER ==
[2019-11-06 22:30] VITALS: BP 138/80
[2019-11-06] MEDS ORDERED: IPRATROPIUM/ALBUTEROL 0.5-2.5 MG/3 ML AMPUL NEB ONE (23:37)
[2019-11-06] MEDS ORDERED: ACETAMINOPHEN 325 MG TABLET PO ONE (23:37)
--- NOTE | 2019-11-06 23:39 | ER Document Report ---
ED General - General Chief Complaint: Difficulty Swallowing Stated Complaint: SHORTNESS OF BREATH Time Seen by Provider: 11/06/19 23:01 Primary Care Provider: JUANITO PEARCE MD [Primary Care Provider] - 11/09/19 Notes: Patient is a 59-year-old male that comes emergency department for chief complaint of a sore throat. He states this started over the past day, he states it is very painful to swallow and he feels like he is getting "strep throat". Initially patient denied any other symptoms but when I persisted patient does admit to feeling generally ill along with an occasional cough and developing wheezing. Denies chest pain, fever, headache, abdominal pain, vomiting, diarrhea, dizziness, headache. He states he only takes no medications for hypertension. Past medical history of hypertension, CAD, CVA, and obesity, denies history of smoking, denies medical history otherwise including diabetes. TRAVEL OUTSIDE OF THE [place] IN LAST 30 DAYS: No - Related Data Allergies/Adverse Reactions: JEOVANY Inhibitors [Jeovany Inhibitors] Allergy (Severe, Verified 10/27/19 13:12) Facial swelling enalapril [Enalapril] Adverse Reaction (Severe, Verified 10/27/19 13:12) periorbital edema lisinopril Adverse Reaction (Severe, Verified 10/27/19 13:12) periorbital edema Past Medical History - General Information source: Patient - Social History Smoking Status: Never Smoker Frequency of alcohol use: None Drug Abuse: None Lives with: Family Family History: CAD Patient has suicidal ideation: No Patient has homicidal ideation: No - Past Medical History Cardiac Medical History: Reports: Hx Atrial Fibrillation, Hx Congestive Heart Failure, Hx Coronary Artery Disease, Hx Heart Attack - 2011, Hx Hypercholesterolemia, Hx Hypertension - MEDS Denies: Hx Peripheral Vascular Disease, Hx Pulmonary Embolism, Hx Heart Murmur Pulmonary Medical History: Reports: Hx Bronchitis, Hx Pneumonia Denies: Hx Asthma, Hx COPD, Hx Respiratory Failure, Hx Sleep Apnea, Hx Tuberculosis Neurological Medical History: Reports: Hx Cerebrovascular Accident - 2011 OR 2012, Hx Seizures. Denies: Hx Parkinson's Disease Renal/ Medical History: Reports: Hx Kidney Stones. Denies: Hx Benign Prostatic Hyperplasia, Hx End Stage Renal Disease, Hx Peritoneal Dialysis Malignancy Medical History: Denies Hx Lung Cancer GI Medical History: Reports: Hx Gastroesophageal Reflux Disease. Denies: Hx Crohn's Disease, Hx Hepatitis, Hx Hiatal Hernia, Hx Irritable Bowel, Hx Liver Failure, Hx Pancreatitis, Hx Ulcer Musculoskeletal Medical History: Denies Hx Arthritis, Denies Hx Fibromyalgia, Reports Hx Multiple Sclerosis, Denies Hx Muscular Dystrophy Psychiatric Medical History: Reports: Hx Bipolar Disorder Denies: Hx Dementia, Hx Depression, Hx Post Traumatic Stress Disorder, Hx Schizophrenia Traumatic Medical History: Denies: Hx Fractures Infectious Medical History: Denies: Hx Hepatitis Past Surgical History: Reports: Hx Appendectomy, Hx Bowel Surgery, Hx Cardiac Catheterization, Hx Cardiac Surgery, Hx Cholecystectomy, Hx Internal Defibrillator, Hx Pacemaker, Hx Tonsillectomy. Denies: Hx Colostomy, Hx Coronary Artery Bypass Graft, Hx Gastric Bypass Surgery, Hx Herniorrhaphy, Hx Open Heart Surgery - Immunizations Immunizations up to date: Yes Hx Diphtheria, Pertussis, Tetanus Vaccination: Yes Hx Pneumococcal Vaccination: 08/01/08 Review of Systems - Review of Systems Constitutional: See HPI EENT: See HPI Cardiovascular: No symptoms reported Respiratory: See HPI Gastrointestinal: No symptoms reported Genitourinary: No symptoms reported Male Genitourinary: No symptoms reported Musculoskeletal: No symptoms reported Skin: No symptoms reported Hematologic/Lymphatic: No symptoms reported Neurological/Psychological: No symptoms reported Physical Exam - Vital signs Vitals: Temp Pulse Resp BP Pulse Ox 98.4 F 70 17 138/80 H 97 11/06/19 21:49 11/06/19 21:49 11/06/19 21:49 11/06/19 21:49 11/06/19 21:49 - Notes Notes: GENERAL: Alert, interacts well. No acute distress. HEAD: Normocephalic, atraumatic. EYES: Pupils equal, round, and reactive to light. Extraocular movements intact. ENT: Oral mucosa moist, tongue midline. Exudative pharyngitis noted, more noticeable on the right although there is no significant swelling or area suggesting peritonsillar abscess. Uvula normal.. Airway patent. Nares patent, sinuses non-tender, ear canals unremarkable, TM's intact. NECK: Full range of motion. Supple. Trachea midline. Bilateral anterior cervical adenopathy. LUNGS: Expiratory wheezes heard bilaterally but I still do hear good breath sounds. No abnormal lower lung sounds, no rales or rhonchi. No cough. No respiratory distress. Non-tender chest wall. HEART: Regular rate and rhythm. No murmur ABDOMEN: Soft, non-tender. Non-distended. EXTREMITIES: Moves all 4 extremities spontaneously. No edema, normal radial and dorsalis pedis pulses bilaterally. No cyanosis. BACK: no cervical, thoracic, lumbar midline tenderness. No saddle anesthesia, normal distal neurovascular exam. Moves all extremities in full range of motion. NEUROLOGICAL: Alert and oriented x3. Normal speech. Cranial nerves II through XII grossly intact. Strength 5/5 in all extremities. PSYCH: Normal affect, normal mood. SKIN: Warm, dry, normal turgor. No rashes or lesions noted. Course - Re-evaluation Re-evalutation: Patient with obvious exudative pharyngitis, anterior cervical adenopathy. He is able to swallow and demonstrated this for me on exam, is not drooling, he has no hot potato voice/vocal change. He denies shortness of breath but did have some wheezing, this did resolve with a DuoNeb treatment. CBC does show my lyndon kocytosis with both elevated neutrophils and eosinophils. Patient states he has seasonal allergies but denies smoking, asthma, needing an inhaler in the past. Will be provided with inhaler now. We discussed options, decision was made because of his very specific exam that he will be covered with Keflex instead of amoxicillin to avoid a rash. We also have coronavirus tests pending. Influenza negative, chest x-ray negative. On reevaluation discussed with patient again, he will be treated with Decadron, he will follow close with primary care, discussed quarantine however and he states he understands the details. He will be provided with these on discharge. Discussed return precautions at length. Patient states understanding and agreement with plan. Stable and well-appearing at time of discharge. - Vital Signs Vital signs: Temp Pulse Resp BP Pulse Ox 98.4 F 70 17 138/80 H 97 11/06/19 21:49 11/06/19 21:49 11/06/19 21:49 11/06/19 21:49 11/06/19 21:49 - Laboratory Result Diagrams: 11/07/19 00:58 11/07/19 00:58 Laboratory results interpreted by me: 11/07/19 11/07/19 00:58 00:58 WBC 13.6 H Hgb 12.9 L MCV 77 L MCH 25.3 L RDW 19.3 H Eos % (Auto) 8.1 H Absolute Neuts (auto) 9.1 H Absolute Eos (auto) 1.1 H BUN 22 H Discharge - Discharge Clinical Impression: Exudative pharyngitis, Cough, Wheezing Condition: Stable Disposition: HOME, SELF-CARE Additional Instructions: Your exam shows a throat infection which is causing sore throat and painful swallowing. You have been treated for this, take the antibiotic as prescribed. You were given Decadron tonight to help your symptoms. Use the inhaler and the spacer. While your evaluation is very suggestive of strep throat this could also be viral. Either way with treatment this should resolve with time. Take Tylenol for pain, drink plenty fluids, and rest. We are also testing you for the coronavirus. Please follow the directions listed below. Follow-up with primary care closely. Return for any concerning symptoms (worsening pain, difficulty swallowing, difficulty breathing, developing abdominal pain, change in your voice ,etc). As a person under investigation for COVID-19, the [place] Department of Health and Human Services (divison on public health) advises you to adhere to the following guidance until your test results are reported to you. If you test result is positive, you will receive additional information from your provider and your local health department at that time. Remain at home until you are cleared by the health provider or public health authorities. Keep a log of visitors to your home, notify any visitors to your home of your isolation status. If you plan to move to a new address or leave the [facility], notify the local [facility] department in your [facility]. Call your Doctor or seek care if you have an urgent medical need. Before seeking medical care, call him to get instructions from the provider before arriving at the medical office, clinic, or hospital. Notify them that you are being tested for the virus (COVID-19) so that arrangements can be made, as necessary, to prevent transmission to others in the healthcare setting. Next, notify the local health department in your [facility]. If a medical emergency arises and you need to call 911, inform the first responders that you are being tested for the virus that causes COVID-19. Next, notify the local health department in your county. Prescriptions: Cephalexin Monohydrate [Keflex 500 mg Capsule] 500 mg PO BID 10 Days #20 capsule Albuterol Sulfate [Proair HFA Inhalation Aerosol 8.5 gm MDI] 2 puff IH Q4H PRN #1 mdi PRN Reason: Referrals: JUANITO PEARCE MD [Primary Care Provider] - 11/09/19
--- NOTE | 2019-11-07 01:34 | RADIOLOGY REPORT (SQ) ---
EXAM DESCRIPTION: XR CHEST 1 VIEW COMPLETED DATE/TME: 11/06/2019 23:37 CLINICAL HISTORY: 59 years Male, cough, wheezing COMPARISON:Jul 10 2019 NUMBER OF VIEWS/TECHNIQUE: 1/AP FINDINGS: Adequate lung volume, clear parenchyma, normal cardiac silhouette, and intact bony thorax.Left cardiac stimulator with leads. IMPRESSION: No acute cardiopulmonary findings.
[2019-11-07 01:39] LABS: ABSOLUTE BASOPHILS # (AUTO) 0.1 10^3/uL (0.0-0.2); ABSOLUTE EOSINOPHILS # (AUTO) 1.1 10^3/uL (0.0-0.6); ABSOLUTE LYMPHOCYTES (AUTO) 2.1 10^3/uL (0.5-4.7); ABSOLUTE MONOCYTES (AUTO) 1.1 10^3/uL (0.1-1.4); ABSOLUTE NEUT (AUTO) 9.1 10^3/uL (1.7-8.2); BASOPHILS % (AUTO) 0.8 % (0-2); EOSINOPHILS % (AUTO) 8.1 % (0-6); HEMATOCRIT 39.2 % (37.9-51.0); HEMOGLOBIN 12.9 g/dL (13.5-17.0); LYMPHOCYTES % (AUTO) 15.8 % (13-45); MEAN CORPUSCULAR HEMOGLOBIN 25.3 pg (27.0-33.4); MEAN CORPUSCULAR HGB CONC 32.8 g/dL (32.0-36.0); MEAN CORPUSCULAR VOLUME 77 fl (80-97); MONOCYTES % (AUTO) 8.5 % (3-13); PLATELET COUNT 303 10^3/uL (150-450); RED BLOOD COUNT 5.09 10^6/uL (4.35-5.55); RED CELL DISTRIBUTION WIDTH 19.3 % (11.5-14.0); SEGMENTED NEUTROPHILS % (AUTO) 66.8 % (42-78); TOTAL CELLS COUNTED % (AUTO) 100 %; WHITE BLOOD COUNT 13.6 10^3/uL (4.0-10.5)
[2019-11-07 01:55] LABS: A TYPE INFLUENZA AG NEGATIVE (NEGATIVE); B INFLUENZA AG NEGATIVE (NEGATIVE)
[2019-11-07 01:57] LABS: ANION GAP 6 (5-19); BLOOD UREA NITROGEN 22 mg/dL (7-20); CALCIUM 9.1 mg/dL (8.4-10.2); CARBON DIOXIDE 30 mmol/L (22-30); CHLORIDE 107 mmol/L (98-107); GLUCOSE 93 mg/dL (75-110); POTASSIUM 4.6 mmol/L (3.6-5.0)
[2019-11-07] MEDS ORDERED: DEXAMETHASONE SOD PHOS INJ 10 MG/1 ML VIAL IV ONE (02:13)
[2019-11-07] MEDS ORDERED: ALBUTEROL SULFATE HFA (90 MCG/PUFF) 8 GM MDI (1 MDI/ER DISP) IH ONE (02:14)
[2019-11-07] MEDS ORDERED: CEPHALEXIN 500 MG CAPSULE PO ONE (02:14)
== END 2019-11-07 03:17 | disposition home or self-care (01) ==
LOC: ER 21:20
DX: J02.9 Acute pharyngitis, unspecified (principal); R05 Cough; R06.2 Wheezing; Z20.828 Contact with and (suspected) exposure to other viral communicable diseases; I48.91 Unspecified atrial fibrillation; I50.9 Heart failure, unspecified; I25.10 Atherosclerotic heart disease of native coronary artery without angina pectoris; E78.00 Pure hypercholesterolemia, unspecified; I11.0 Hypertensive heart disease with heart failure; Z86.73 Personal history of transient ischemic attack (TIA), and cerebral infarction without residual deficits; Z87.442 Personal history of urinary calculi; Z90.49 Acquired absence of other specified parts of digestive tract; Z95.810 Presence of automatic (implantable) cardiac defibrillator; I25.2 Old myocardial infarction
CPT/HCPCS: 94640; 99283; 96374; 36415; 87070; 87880; 85025; 87635; 80048; 87804; 71045; A9270 ×3; J1100; J7620

== ENCOUNTER 2020-01-03 10:59 | Inpatient (IN) | payer MEDICARE ==
[2020-01-03 12:46] LABS: HEMATOCRIT 27.6 % (37.9-51.0); HEMOGLOBIN 8.3 g/dL (13.5-17.0); MEAN CORPUSCULAR HEMOGLOBIN 20.4 pg (27.0-33.4); MEAN CORPUSCULAR VOLUME 68 fl (80-97); PLATELET COUNT 355 10^3/uL (150-450); RED BLOOD COUNT 4.06 10^6/uL (4.35-5.55); RED CELL DISTRIBUTION WIDTH 20.9 % (11.5-14.0); WHITE BLOOD COUNT 12.7 10^3/uL (4.0-10.5)
[2020-01-03 13:12] LABS: ALBUMIN 4.1 g/dL (3.5-5.0); ALKALINE PHOSPHATASE 80 U/L (38-126); ANION GAP 8 (5-19); ASPARTATE AMINO TRANSFERASE 23 U/L (17-59); BILIRUBIN,TOTAL 0.4 mg/dL (0.2-1.3); BLOOD UREA NITROGEN 34 mg/dL (7-20); CALCIUM 9.1 mg/dL (8.4-10.2); CARBON DIOXIDE 26 mmol/L (22-30); CHLORIDE 103 mmol/L (98-107); GLUCOSE 115 mg/dL (75-110); POTASSIUM 4.8 mmol/L (3.6-5.0)
--- NOTE | 2020-01-03 13:54 | RADIOLOGY REPORT (SQ) ---
EXAM DESCRIPTION: CHEST 2 VIEWS IMAGES COMPLETED DATE/TIME: 01/03/2020 1:38 pm REASON FOR STUDY: non-ischemic cardiomyopathy COMPARISON: 11/07/2019 EXAM PARAMETERS: NUMBER OF VIEWS: two views TECHNIQUE: Digital Frontal and Lateral radiographic views of the chest acquired. RADIATION DOSE: NA LIMITATIONS: none FINDINGS: LUNGS AND PLEURA: No opacities, masses or pneumothorax. No pleural effusion. MEDIASTINUM AND HILAR STRUCTURES: No masses or contour abnormalities. HEART AND VASCULAR STRUCTURES: Cardiomegaly. No pulmonary edema. BONES: No acute findings. HARDWARE: Pacemaker. OTHER: No other significant finding. IMPRESSION: Cardiomegaly without pulmonary edema. TECHNICAL DOCUMENTATION: JOB ID: [id number] 2010 [email or web address]- All Rights Reserved Reading location - IP/workstation name: [email or web address]
[2020-01-03] MEDS: NORMAL SALINE 250 ML with FUROSEMIDE 250 MG IV PRN ×2 (15:39)
[2020-01-03 18:27] LABS: APPEARANCE,URINE CLEAR; BILIRUBIN,URINE NEGATIVE (NEGATIVE); COLOR,URINE STRAW; GLUCOSE, URINE NEGATIVE (NEGATIVE); KETONES,URINE NEGATIVE (NEGATIVE); LEUKOCYTE ESTERASE,URINE NEGATIVE (NEGATIVE); NITRITE,URINE NEGATIVE (NEGATIVE); PROTEIN,URINE NEGATIVE (NEGATIVE); URINE SPECIFIC GRAVITY 1.012; UROBILINOGEN,URINE NEGATIVE mg/dL (<2.0)
--- NOTE | 2020-01-03 21:34 | PDOC H&P ---
History of Present Illness Admission Date/PCP: 01/03/20 10:59 JUANITO PEARCE MD History of Present Illness: MALAIKA SARGENT is a 59 year old male,He has a history of chronic dilated systolic and diastolic heart failure he came to the office today for evaluation of refractory lower extremity edema nonresponsive to furosemide, in the office he was evaluated he was found to be in CHF, he was admitted directly from the office to the hospital for management Past Medical History Cardiac Medical History: Reports: Atrial Fibrillation, Congestive Heart Failure, Coronary Artery Disease, Myocardial Infarction - 2012, Hyperlipidema, Hypertension - MEDS Pulmonary Medical History: Reports: Bronchitis, Pneumonia Neurological Medical History: Reports: Seizures GI Medical History: Reports: Gastroesophageal Reflux Disease Psychiatric Medical History: Reports: Bipolar Disorder Past Surgical History Past Surgical History: Reports: Appendectomy, Cardiac Catheterization, Cholecystectomy, Internal Defibrillator, Pacemaker, Tonsillectomy Social History Smoking Status: Never Smoker Frequency of Alcohol Use: None Hx Recreational Drug Use: No Drugs: None Hx Prescription Drug Abuse: No Family History Family History: CAD Parental Family History Reviewed: Yes Children Family History Reviewed: Yes Sibling(s) Family History Reviewed.: Yes Medication/Allergy Home Medications: Albuterol Sulfate [Proair HFA Inhalation Aerosol 8.5 gm MDI] 2 puff IH Q4HP PRN 07/10/19 Buspirone HCl [Buspar 10 mg Tablet] 10 mg PO BID 07/10/19 Diltiazem HCl [Diltiazem 24Hr ER] 180 mg PO BID 07/10/19 Duloxetine HCl [Cymbalta] 60 mg PO DAILY 07/10/19 Fluticasone/Salmeterol [Advair 250-50 Diskus 14 Dose/Diskus] 2 puff IH DAILY 05/19 Furosemide [Lasix 40 mg Tablet] 40 mg PO QAM 07/10/19 Omeprazole 20 mg PO DAILY 07/10/19 Spironolactone [Aldactone] 50 mg PO DAILY 07/10/19 Apixaban [Eliquis 5 mg Tablet] 5 mg PO BID #60 tablet 07/16/19 Carvedilol 25 mg PO BID #180 07/16/19 Carvedilol [Coreg 25 mg Tablet] 25 mg PO BID #180 07/16/19 Chlorhexidine Gluconate [Peridex] 15 ml MM QID #120 ml 10/27/19 Albuterol Sulfate [Proair HFA Inhalation Aerosol 8.5 gm MDI] 2 puff IH Q4H PRN #1 mdi 11/07/19 Cephalexin Monohydrate [Keflex 500 mg Capsule] 500 mg PO BID 10 Days #20 capsule 11/07/19 Allergies/Adverse Reactions: MACRINA Inhibitors [Macrina Inhibitors] Allergy (Severe, Verified 10/27/19 13:12) Facial swelling enalapril [Enalapril] Adverse Reaction (Severe, Verified 10/27/19 13:12) periorbital edema lisinopril Adverse Reaction (Severe, Verified 10/27/19 13:12) periorbital edema Review of Systems Constitutional: ABSENT: chills, fever(s), headache(s), weight gain, weight loss Eyes: ABSENT: visual disturbances Ears: ABSENT: hearing changes Cardiovascular: PRESENT: dyspnea on exertion, edema Respiratory: PRESENT: dyspnea Gastrointestinal: ABSENT: abdominal pain, constipation, diarrhea, hematemesis, hematochezia, nausea, vomiting Genitourinary: ABSENT: dysuria, hematuria Musculoskeletal: ABSENT: joint swelling Integumentary: ABSENT: rash, wounds Neurological: ABSENT: abnormal gait, abnormal speech, confusion, dizziness, focal weakness, syncope Psychiatric: ABSENT: anxiety, depression, homidical ideation, suicidal ideation Endocrine: ABSENT: cold intolerance, heat intolerance, menstrual abnormalities, polydipsia, polyuria Hematologic/Lymphatic: ABSENT: easy bleeding, easy bruising, lymphadenopathy Physical Exam Vital Signs: Temp Pulse Resp BP Pulse Ox 98.3 F 75 20 142/83 H 99 01/03/20 19:55 01/03/20 19:55 01/03/20 19:55 01/03/20 19:55 01/03/20 19:55 Intake & Output 01/02/20 01/03/20 01/04/20 06:59 06:59 06:59 Intake Total 720 Output Total 200 Balance 520 Weight 131.9 kg General appearance: PRESENT: other - Patient is obese not in any obvious distress Head exam: PRESENT: atraumatic, normocephalic Eye exam: PRESENT: conjunctiva pink, EOMI, PERRLA Ear exam: PRESENT: normal external ear exam Mouth exam: PRESENT: moist, tongue midline Neck exam: PRESENT: full ROM Respiratory exam: PRESENT: wheezes Cardiovascular exam: PRESENT: RRR, +S1, +S2 Pulses: PRESENT: normal dorsalis pedis pul, +2 pedal pulses bilateral Vascular exam: PRESENT: normal capillary refill GI/Abdominal exam: PRESENT: normal bowel sounds, soft Rectal exam: PRESENT: deferred Extremities exam: PRESENT: pedal edema Neurological exam: PRESENT: alert, CN II-XII grossly intact Psychiatric exam: PRESENT: appropriate affect, normal mood Skin exam: PRESENT: dry, intact, warm. ABSENT: cyanosis, rash Results Laboratory Results: 01/03/20 12:33 01/03/20 12:33 01/03/20 01/03/20 01/03/20 12:33 12:33 17:53 WBC 12.7 H RBC 4.06 L Hgb 8.3 L Hct 27.6 L MCV 68 L MCH 20.4 L MCHC 30.0 L RDW 20.9 H Plt Count 355 Sodium 136.5 L Potassium 4.8 Chloride 103 Carbon Dioxide 26 Anion Gap 8 BUN 34 H Creatinine 1.41 H Est GFR ( Amer) > 60 Glucose 115 H Calcium 9.1 Total Bilirubin 0.4 AST 23 Alkaline Phosphatase 80 Total Protein 7.0 Albumin 4.1 Urine Color STRAW Urine Appearance CLEAR Urine pH 6.0 Ur Specific [place] 1.012 Urine Protein NEGATIVE Urine Glucose (UA) NEGATIVE Urine Ketones NEGATIVE Urine Blood NEGATIVE Urine Nitrite NEGATIVE Ur Leukocyte Esterase NEGATIVE Urine WBC (Auto) 0 Urine RBC (Auto) 1 01/03/20 12:33 NT-Pro-B Natriuret Pep 2480 H Impressions: Chest X-Ray 01/03/20 00:00 IMPRESSION: Cardiomegaly without pulmonary edema. Assessment & Plan - Diagnosis (1) Acute systolic heart failure Is this a current diagnosis for this admission?: Yes Plan: Patient has a history of chronic combined systolic and diastolic heart failure, now present with decompensated congestive heart failure, treatment is refractory to outpatient Lasix. Is admitted for diuresis, consultation will be obtained from patient's process stripper Dr. Bowen (2) Permanent atrial fibrillation Is this a current diagnosis for this admission?: Yes Plan: Patient will continue anticoagulant for CVA prophylaxis (3) Bipolar 1 disorder Is this a current diagnosis for this admission?: Yes (4) Chronic obstructive pulmonary disease Qualifiers: COPD type: unspecified COPD Qualified Code(s): J44.9 - Chronic obstructive pulmonary disease, unspecified Is this a current diagnosis for this admission?: Yes
--- NOTE | 2020-01-03 21:57 | XCELERA REPORT ---
[address] [address] Transthoracic Echocardiogram Report Name: MALAIKA SARGENT Age: 59 yrs Gender: Male : 1960 Patient Status: Inpatient Patient Location: [address] [place], [place] [address] Study Date: 01/03/2020 03:10 PM Height: 70 in Weight: 291 lb BSA: 2.4 m2 Procedure: A two-dimensional transthoracic echocardiogram with color flow and Doppler was performed. The study was technically limited with all images being suboptimal in quality. 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 Ordering Physician: JUANITO PEARCE Performed By: Almita Nieves Interpretation Summary The left ventricle is moderately to severly dilated. There is normal left ventricular wall thickness. LV EF is 40% Left ventricular systolic function is moderately reduced. There is moderate global hypokinesis of the left ventricle. There is no thrombus. Cannot assess ASD.VSD or PFO. The right ventricle is not well visualized secondary to technical limitations The right atrium is mild to moderately dilated. The left atrium is severely dilated. There is no evidence of mitral valve prolapse. There is no vegetation seen on the mitral valve. There is no mitral valve stenosis. There is a mild amount of mitral regurgitation There is no aortic valvular vegetation. There is no LVOT obstruction. There is no aortic valve stenosis No aortic regurgitation is present. There is no pulmonic valvular stenosis. The aortic root is normal size. The inferior vena cava appeared dilated and decreased < 50% with respiration (RAP 15-20 mmHg) There is no tricuspid stenosis. There is a mild to moderate amount of tricuspid regurgitation There is moderate pulmonary hypertension by echo RVSP is 55 to 60 mm of Hg , with RA mean of 15. to 20. There is no pericardial effusion. MMode/2D Measurements & Calculations RVDd: 4.3 cm LVIDd: 7.0 cm FS: 22.0 % Ao root diam: 3.3 cm IVSd: 1.1 cm LVIDs: 5.5 cm EDV(Teich): 255.7 ml Ao root area: 8.4 cm2 LVPWd: 0.85 cm ESV(Teich): 145.0 ml LA dimension: 5.6 cm EF(Teich): 43.3 % Doppler Measurements & Calculations MV E max iris: MV P1/2t max iris: Ao V2 max: LV V1 max P.0 cm/sec 94.3 cm/sec 107.0 cm/sec 4.7 mmHg MV A max iris: MV P1/2t: 49.0 msec Ao max P.6 mmHgLV V1 max: 45.4 cm/sec MVA(P1/2t): 4.5 cm2 108.6 cm/sec MV E/A: 2.0 MV dec slope: 563.7 cm/sec2 MV dec time: 0.15 sec PA V2 max: TR max iris: MV P1/2t-pr_phl: 101.2 cm/sec 316.7 cm/sec 51.6 msec PA max P.1 mmHgTR max P.1 mmHg Left Ventricle The left ventricle is moderately to severly dilated. There is normal left ventricular wall thickness. LV EF is 40%. Left ventricular systolic function is moderately reduced. LV diastolic function could not be adequately assessed due to atrial fibrilation. There is moderate global hypokinesis of the left ventricle. There is no thrombus. Cannot assess ASD.VSD or PFO. Right Ventricle The right ventricle is not well visualized secondary to technical limitations. Atria The right atrium is mild to moderately dilated. The left atrium is severely dilated. Mitral Valve There is no evidence of mitral valve prolapse. There is no vegetation seen on the mitral valve. There is no mitral valve stenosis. There is a mild amount of mitral regurgitation. Aortic Valve There is no aortic valvular vegetation. There is no LVOT obstruction. There is no aortic valve stenosis. No aortic regurgitation is present. Tricuspid Valve There is no tricuspid stenosis. There is a mild to moderate amount of tricuspid regurgitation. There is moderate pulmonary hypertension by echo. RVSP is 55 to 60 mm of Hg , with RA mean of 15. to 20. Pulmonic Valve There is no pulmonic valvular stenosis. There is no pulmonic valvular regurgitation. Great Vessels The aortic root is normal size. The inferior vena cava appeared dilated and decreased < 50% with respiration (RAP 15-20 mmHg). Effusions There is no pericardial effusion. : JUANITO PEARCE Lakshmi
[2020-01-03] MEDS: AZITHROMYCIN 250 MG TABLET PO SCH (22:02)
[2020-01-03] MEDS: APIXABAN 5 MG TABLET PO SCH (22:02)
[2020-01-04] MEDS: APIXABAN 5 MG TABLET PO SCH ×2 (10:19→18:18)
--- NOTE | 2020-01-04 12:44 | EKG REPORT ---
SEVERITY:- ABNORMAL ECG - VENTRICULAR-PACED COMPLEXES UNDERLYING A FIB : Confirmed by: Christie Montgomery 04-Jan-2020 12:43:42
[2020-01-04] MEDS: NORMAL SALINE 250 ML with FUROSEMIDE 250 MG IV PRN ×2 (18:18)
[2020-01-04] MEDS: PHARMACY COMMUNICATION ORDER MC SCH (18:19)
[2020-01-04] MEDS: METOPROLOL SUCCINATE 50 MG TAB.SR.24H PO SCH (21:41)
[2020-01-04] MEDS: AZITHROMYCIN 250 MG TABLET PO SCH (21:41)
--- NOTE | 2020-01-04 21:46 | PDOC PROGRESS REPORT ---
Subjective Progress Note for:: 01/04/20 Subjective:: Patient seen by the bedside he diuresed effectively, the outpatient medication is yet to be reconciled, patient was started on Eliquis anticoagulant, metoprolol, the other medication he uses on a regular basis was not reconciled by the pharmacy yet Reason For Visit: ACUTE SYSTOLIC HEART FAILURE, H/O NON-ISCHEMIC Physical Exam Vital Signs: Temp Pulse Resp BP Pulse Ox 98.0 F 93 16 151/80 H 100 01/04/20 16:04 01/04/20 19:00 01/04/20 16:04 01/04/20 16:04 01/04/20 16:04 Intake & Output 01/03/20 01/04/20 01/05/20 06:59 06:59 06:59 Intake Total 1020 1227 Output Total 200 Balance 820 1227 Weight 128.3 kg General appearance: PRESENT: no acute distress, well-developed, well-nourished Head exam: PRESENT: atraumatic, normocephalic Eye exam: PRESENT: conjunctiva pink, EOMI, PERRLA Ear exam: PRESENT: normal external ear exam Mouth exam: PRESENT: moist, tongue midline Neck exam: PRESENT: full ROM Respiratory exam: PRESENT: clear to auscultation johnson Cardiovascular exam: PRESENT: RRR, +S1, +S2 Pulses: PRESENT: normal dorsalis pedis pul, +2 pedal pulses bilateral Vascular exam: PRESENT: normal capillary refill GI/Abdominal exam: PRESENT: normal bowel sounds, soft Rectal exam: PRESENT: deferred Neurological exam: PRESENT: alert, CN II-XII grossly intact Psychiatric exam: PRESENT: appropriate affect, normal mood Skin exam: PRESENT: dry, intact, warm. ABSENT: cyanosis, rash Results Laboratory Results: 01/03/20 12:33 01/03/20 12:33 01/03/20 12:33 NT-Pro-B Natriuret Pep 2480 H Impressions: Chest X-Ray 01/03/20 00:00 IMPRESSION: Cardiomegaly without pulmonary edema. Assessment & Plan - Diagnosis (1) Acute systolic heart failure Is this a current diagnosis for this admission?: Yes Plan: Continue present regimen (2) Permanent atrial fibrillation Is this a current diagnosis for this admission?: Yes Plan: Continue anticoagulant (3) Bipolar 1 disorder Is this a current diagnosis for this admission?: Yes (4) Chronic obstructive pulmonary disease Qualifiers: COPD type: unspecified COPD Qualified Code(s): J44.9 - Chronic obstructive pulmonary disease, unspecified Is this a current diagnosis for this admission?: Yes - Time Time Spent with patient: 35 or more minutes Level of Care: IMCU Medications reviewed and adjusted accordingly: Yes
[2020-01-05] MEDS: METOPROLOL SUCCINATE 50 MG TAB.SR.24H PO SCH (10:29)
[2020-01-05] MEDS: APIXABAN 5 MG TABLET PO SCH ×2 (10:29→18:16)
--- NOTE | 2020-01-05 17:33 | PDOC PROGRESS REPORT ---
Subjective Progress Note for:: 01/05/20 Subjective:: Patient reported improvement in his breathing and leg swelling. No chest pain. No reported fever or chills. No nausea, vomiting, or abdominal pain. Reason For Visit: ACUTE SYSTOLIC HEART FAILURE, H/O NON-ISCHEMIC Physical Exam Vital Signs: Temp Pulse Resp BP Pulse Ox 98.6 F 80 17 121/75 97 01/05/20 16:03 01/05/20 16:03 01/05/20 16:03 01/05/20 16:03 01/05/20 16:03 Intake & Output 01/04/20 01/05/20 01/06/20 06:59 06:59 06:59 Intake Total 1020 1487 Output Total 200 Balance 820 1487 Weight 128.3 kg 130.4 kg General appearance: PRESENT: no acute distress, obese Head exam: PRESENT: atraumatic, normocephalic Eye exam: PRESENT: conjunctiva pink. ABSENT: scleral icterus Mouth exam: PRESENT: moist Respiratory exam: PRESENT: clear to auscultation johnson, decreased breath sounds - at lung bases Cardiovascular exam: PRESENT: RRR, +S1, +S2. ABSENT: diastolic murmur, rubs, systolic murmur Vascular exam: ABSENT: pallor GI/Abdominal exam: PRESENT: normal bowel sounds, soft. ABSENT: distended, guarding, mass, organolmegaly, rebound, tenderness Extremities exam: PRESENT: pedal edema - 1+ bilaterally Neurological exam: PRESENT: alert, awake Psychiatric exam: PRESENT: appropriate affect, normal mood Skin exam: PRESENT: dry, warm Results Laboratory Results: 01/03/20 12:33 01/03/20 12:33 01/03/20 12:33 NT-Pro-B Natriuret Pep 2480 H Impressions: Chest X-Ray 01/03/20 00:00 IMPRESSION: Cardiomegaly without pulmonary edema. Assessment & Plan - Diagnosis (1) Acute on chronic combined systolic and diastolic CHF (congestive heart failure) Is this a current diagnosis for this admission?: Yes Plan: Maintain on current medication management. (2) Chronic atrial fibrillation Is this a current diagnosis for this admission?: Yes Plan: Maintain on current medication management. (3) Bipolar 1 disorder, depressed Is this a current diagnosis for this admission?: Yes Plan: Medication reconciliation completed during this bedside visit. (4) Body mass index 39.0-39.9, adult Is this a current diagnosis for this admission?: Yes Plan: Maintain on current medication management. - Time Time Spent with patient: 25-34 minutes Level of Care: IMCU Medications reviewed and adjusted accordingly: Yes Anticipated discharge: SNF Within: Other - Inpatient Certification Based on my medical assessment, after consideration of the patient's comorbidities, presenting symptoms, or acuity I expect that the services needed warrant INPATIENT care.: Yes I certify that my determination is in accordance with my understanding of Medicare's requirements for reasonable and necessary INPATIENT services [42 CFR 412.3e].: Yes Medical Necessity: Significant Comorbidiites Make Outpatient Treatment Too Risky, Need Close Monitoring Due to Risk of Patient Decompensation, Need For Continuous Telemetry Monitoring, Need for IV Antibiotics, Risk of Complication if Not Cared For in Hospital, Risk of Diagnosis Which Will Require Inpatient Eval/Care/Monitoring Post Hospital Care: D/C or Transfer Summary - Plan Summary Plan Summary: Maintain on current medication management.
[2020-01-05] MEDS: NORMAL SALINE 250 ML with FUROSEMIDE 250 MG IV PRN ×2 (18:16)
[2020-01-05] MEDS: PHARMACY COMMUNICATION ORDER MC SCH (18:16)
[2020-01-05] MEDS ORDERED: ALBUTEROL SULFATE HFA (90 MCG/PUFF) 8 GM MDI (1 MDI/ER DISP) IH PRN (19:15)
[2020-01-05] MEDS: BUSPIRONE HCL 10 MG TABLET PO SCH (21:20)
[2020-01-05] MEDS: AZITHROMYCIN 250 MG TABLET PO SCH (21:20)
--- NOTE | 2020-01-05 22:15 | Progress Note ---
Provider Note Provider Note: CARDIOLOGY PROGRESS NOTE by Dr. Consuelo Lynch on 01/05/2020. SUBJECTIVE: The patient denies any chest pain or discomfort. There is no shortness of breath. There is no PND orthopnea. He has no leg edema. He remains in chronic atrial fibrillation. There is no firing of his AICD. There is no bleeding on anticoagulation. There is no TIA CVA symptoms. PHYSICAL EXAMINATION: The patient is moderate to morbidly obese. In no acute distress. Selected Entries 01/05/20 16:03 Temperature 98.6 F Temperature Oral Source Pulse Rate 80 Respiratory 17 Rate Blood Pressure 121/75 Blood Pressure 90 Mean BP Location Left Arm BP Position Supine O2 Sat by Pulse 97 Oximetry Oxygen Delivery Room Air Method HEAD: Is atraumatic normocephalic. EYES: Pupils are equal round regular reactive to light accommodation. Extraocular movements are normal. There is no conjunctival pallor. There is no scleral icterus. EARS: Tympanic membranes are intact. External auditory canals are clear. NOSE: There is no deviated nasal septum. There is no inflammation of the nasal mucous membrane. MOUTH: Mucous membranes of mouth are moist. Tongue is moist. There is no ulcers. THROAT: There is no redness of the oropharynx. There is no exudates. SKIN: There is no skin rashes. There is no skin lesions or skin petechia or ecchymosis. NECK: Supple. There is no JVD. Carotids are equal there is no bruits there is no lymphadenopathy there is no goiter. There is no thyromegaly. There is no accessory muscles of respiration use. Trachea central. LUNGS: Is clear to auscultation percussion without any rhonchi rales or wheezing. HEART: S1-S2 is heard. S1 is variable intensity. There is no S3 gallop there is systolic murmur of MR and TR present. There is no rub. ABDOMEN: Is obese. Nontender. There is no hepatosplenomegaly. Bowel sounds are well heard. EXTREMITIES femor als are deep femorals are diminished there is no femoral bruits. There is no pedal edema. There is no DVT or cellulitis. Leg pulses slightly diminished. There is no calf tenderness. There is no cyanosis or clubbing. MASTIC FLOOR LAYER: The patient is conscious awake alert oriented x3. PSYCHIATRIC: The patient does not appear to be agitated or anxious. Labs- Entire Visit 01/03/20 01/03/20 01/03/20 12:33 12:33 12:33 WBC 12.7 H RBC 4.06 L Hgb 8.3 L Hct 27.6 L MCV 68 L MCH 20.4 L MCHC 30.0 L RDW 20.9 H Plt Count 355 Sodium 136.5 L Potassium 4.8 Chloride 103 Carbon Dioxide 26 Anion Gap 8 BUN 34 H Creatinine 1.41 H Est GFR ( Amer) > 60 Est GFR (MDRD) Non-Af 52 L Glucose 115 H Calcium 9.1 Total Bilirubin 0.4 Direct Bilirubin 0.0 Neonat Total Bilirubin Not Reportable Neonat Direct Bilirubin Not Reportable Neonat Indirect Bili Not Reportable AST 23 ALT 17 Alkaline Phosphatase 80 NT-Pro-B Natriuret Pep 2480 H Total Protein 7.0 Albumin 4.1 Urine Color Urine Appearance Urine pH Ur Specific Crouse Urine Protein Urine Glucose (UA) Urine Ketones Urine Blood Urine Nitrite Urine Bilirubin Urine Urobilinogen Ur Leukocyte Esterase Urine WBC (Auto) Urine RBC (Auto) U Hyaline Cast (Auto) Urine Mucus (Auto) Urine Ascorbic Acid 01/03/20 17:53 WBC RBC Hgb Hct MCV MCH MCHC RDW Plt Count Sodium Potassium Chloride Carbon Dioxide Anion Gap BUN Creatinine Est GFR ( Amer) Est GFR (MDRD) Non-Af Glucose Calcium Total Bilirubin Direct Bilirubin Neonat Total Bilirubin Neonat Direct Bilirubin Neonat Indirect Bili AST ALT Alkaline Phosphatase NT-Pro-B Natriuret Pep Total Protein Albumin Urine Color STRAW Urine Appearance CLEAR Urine pH 6.0 Ur Specific Crouse 1.012 Urine Protein NEGATIVE Urine Glucose (UA) NEGATIVE Urine Ketones NEGATIVE Urine Blood NEGATIVE Urine Nitrite NEGATIVE Urine Bilirubin NEGATIVE Urine Urobilinogen NEGATIVE Ur Leukocyte Esterase NEGATIVE Urine WBC (Auto) 0 Urine RBC (Auto) 1 U Hyaline Cast (Auto) 3 Urine Mucus (Auto) RARE Urine Ascorbic Acid NEGATIVE Chest X-Ray 01/03/20 00:00 IMPRESSION: Cardiomegaly without pulmonary edema. IMPRESSION/RECOMMENDATION: 1. Acute on chronic systolic heart failure: Seems at present to be compensated. Continue current treatment. The patient is sick VMT allergic to MACRINA inhibitor which causes angioedema. Hence there is a chance of cross-reactivity with ARB use. Hence we will start the patient on hydralazine. Continue beta-pollo. 2. Cardiomyopathy with moderately reduced LV ejection fraction. Continue Toprol-XL. Cannot use MACRINA inhibitor or ARB in this situation hence we will start the patient on hydralazine. 3. Chronic atrial fibrillation: Continue beta-pollo and Xarelto. 4. Moderate pulmonary hypertension: Hydralazine should help. 5. AICD in situ: No firing of AICD. 6. Hypertension: Blood pressure well controlled 7. History of coronary artery disease: History of old [place] no anginal symptoms. 8. Bipolar disorder: Seems to be well compensated. 9. COPD: No evidence of acute exacerbation. Medications reviewed. Medications added medical regimen and management plan discussed with the attending provider covering Dr. Conti. 40 minutes spent on this patient more than 50% time spent in direct patient care. Medical decision making is of high complexity in view of the need to start the patient on new medication. Will follow. 6.
[2020-01-06] MEDS: HYDRALAZINE HCL 10 MG TABLET PO SCH ×3 (06:26→21:51)
[2020-01-06] MEDS ORDERED: ALBUTEROL SULFATE HFA (90 MCG/PUFF) 200 PUFF/8.5 GM MDI IH PRN (07:04)
[2020-01-06 09:38] LABS: ABSOLUTE BASOPHILS # (AUTO) 0.1 10^3/uL (0.0-0.2); ABSOLUTE EOSINOPHILS # (AUTO) 0.9 10^3/uL (0.0-0.6); ABSOLUTE LYMPHOCYTES (AUTO) 1.4 10^3/uL (0.5-4.7); ABSOLUTE MONOCYTES (AUTO) 0.7 10^3/uL (0.1-1.4); BASOPHILS % (AUTO) 0.7 % (0-2); EOSINOPHILS % (AUTO) 8.2 % (0-6); HEMATOCRIT 34.3 % (37.9-51.0); LYMPHOCYTES % (AUTO) 12.2 % (13-45); MEAN CORPUSCULAR HEMOGLOBIN 20.3 pg (27.0-33.4); MEAN CORPUSCULAR HGB CONC 30.2 g/dL (32.0-36.0); MEAN CORPUSCULAR VOLUME 67 fl (80-97); MONOCYTES % (AUTO) 6.4 % (3-13); PLATELET COUNT 426 10^3/uL (150-450); RED CELL DISTRIBUTION WIDTH 21.4 % (11.5-14.0); SEGMENTED NEUTROPHILS % (AUTO) 72.5 % (42-78); TOTAL CELLS COUNTED % (AUTO) 100 %; WHITE BLOOD COUNT 11.1 10^3/uL (4.0-10.5)
[2020-01-06 09:45] LABS: HEMOGLOBIN 10.4 g/dL (13.5-17.0)
[2020-01-06 09:52] LABS: ANION GAP 9 (5-19); BLOOD UREA NITROGEN 38 mg/dL (7-20); CALCIUM 9.5 mg/dL (8.4-10.2); CARBON DIOXIDE 29 mmol/L (22-30); CHLORIDE 96 mmol/L (98-107); GLUCOSE 159 mg/dL (75-110); POTASSIUM 4.1 mmol/L (3.6-5.0)
[2020-01-06] MEDS: BUSPIRONE HCL 10 MG TABLET PO SCH ×2 (09:56→21:51)
[2020-01-06] MEDS: FUROSEMIDE 40 MG TABLET PO SCH (09:56)
[2020-01-06] MEDS: DULOXETINE HCL 30 MG CAPSULE.DR PO SCH (09:56)
[2020-01-06] MEDS: METOPROLOL SUCCINATE 50 MG TAB.SR.24H PO SCH (09:57)
[2020-01-06] MEDS: APIXABAN 5 MG TABLET PO SCH ×2 (09:57→17:35)
--- NOTE | 2020-01-06 14:33 | PDOC PROGRESS REPORT ---
Subjective Progress Note for:: 01/06/20 Subjective:: Patient denied chest pain or difficulty with breathing. No reported fever or chills. No nausea, vomiting, or abdominal pain. Reason For Visit: ACUTE SYSTOLIC HEART FAILURE, H/O NON-ISCHEMIC Physical Exam Vital Signs: Temp Pulse Resp BP Pulse Ox 97.8 F 75 17 117/91 H 100 01/06/20 12:20 01/06/20 12:20 01/06/20 12:20 01/06/20 12:20 01/06/20 12:20 Intake & Output 01/05/20 01/06/20 01/07/20 06:59 06:59 06:59 Intake Total 1487 1742 490 Balance 1487 1742 490 Weight 130.4 kg 128.2 kg Physical Exam: General appearance: PRESENT: no acute distress, obese Head exam: PRESENT: atraumatic, normocephalic Eye exam: PRESENT: conjunctiva pink. ABSENT: pallor, scleral icterus Mouth exam: PRESENT: moist Respiratory exam: PRESENT: clear to auscultation johnson, decreased breath sounds - at lung bases Cardiovascular exam: PRESENT: RRR, +S1, +S2. ABSENT: diastolic murmur, rubs, systolic murmur GI/Abdominal exam: PRESENT: normal bowel sounds, soft. ABSENT: distended, guarding, mass, organomegaly, rebound, tenderness Extremities exam: PRESENT: pedal edema - 1+ bilaterally Neurological exam: PRESENT: alert, awake Psychiatric exam: PRESENT: appropriate affect, normal mood Skin exam: PRESENT: dry, warm Results Laboratory Results: 01/06/20 09:16 01/06/20 09:16 01/06/20 01/06/20 09:16 09:16 WBC 11.1 H RBC 5.10 Hgb 10.4 L D Hct 34.3 L MCV 67 L MCH 20.3 L MCHC 30.2 L RDW 21.4 H Plt Count 426 Seg Neutrophils % 72.5 Sodium 134.1 L Potassium 4.1 Chloride 96 L Carbon Dioxide 29 Anion Gap 9 BUN 38 H Creatinine 1.57 H Est GFR ( Amer) 55 L Glucose 159 H Calcium 9.5 01/03/20 12:33 NT-Pro-B Natriuret Pep 2480 H Impressions: Chest X-Ray 01/03/20 00:00 IMPRESSION: Cardiomegaly without pulmonary edema. Assessment & Plan - Diagnosis (1) Acute on chronic combined systolic and diastolic CHF (congestive heart failure) Is this a current diagnosis for this admission?: Yes (2) Chronic atrial fibrillation Is this a current diagnosis for this admission?: Yes (3) Bipolar 1 disorder, depressed Is this a current diagnosis for this admission?: Yes (4) Body mass index 39.0-39.9, adult Is this a current diagnosis for this admission?: Yes - Time Time Spent with patient: 25-34 minutes Level of Care: IMCU Medications reviewed and adjusted accordingly: Yes Anticipated discharge: Home with Homehealth, SNF Within: Other - Inpatient Certification Based on my medical assessment, after consideration of the patient's comorbidities, presenting symptoms, or acuity I expect that the services needed warrant INPATIENT care.: Yes I certify that my determination is in accordance with my understanding of Medicare's requirements for reasonable and necessary INPATIENT services [42 CFR 412.3e].: Yes Medical Necessity: Significant Comorbidiites Make Outpatient Treatment Too Risky, Need Close Monitoring Due to Risk of Patient Decompensation, Risk of Complication if Not Cared For in Hospital, Risk of Diagnosis Which Will Require Inpatient Eval/Care/Monitoring - Plan Summary Plan Summary: Continue current medication management. Obtain CBC with diff, BMP, NT-Pro BNP in am.
--- NOTE | 2020-01-06 14:44 | Progress Note ---
Provider Note Provider Note: CARDIOLOGY PROGRESS NOTE by Dr. Consuelo Lynch on 01/06/2020. SUBJECTIVE: The patient denies any chest pain or discomfort. There is no shortness of breath. He is sitting comfortably up in the chair. There is no arrhythmias seen on the monitor except for atrial fibrillation with a controlled ventricular response. There is no firing of his AICD. There is no bleeding on Eliquis. There is no TIA CVA symptoms. There is no leg edema. There is no PND orthopnea or shortness of breath. PHYSICAL EXAMINATION: The patient is moderately to morbidly obese. In no acute distress. Selected Entries 01/06/20 12:20 Temperature 97.8 F Temperature Oral Source Pulse Rate 75 Respiratory 17 Rate Blood Pressure 99 Mean BP Location Left Arm O2 Sat by Pulse 100 Oximetry Oxygen Delivery Room Air Method HEAD: Is atraumatic normocephalic. EYES: Pupils are equal round regular reactive to light accommodation. Extraocular movements are normal. There is no conjunctival pallor. There is no scleral icterus. EARS: Tympanic membranes are intact. External auditory canals are clear. NOSE: There is no deviated nasal septum. There is no inflammation of the nasal mucous membrane. MOUTH: Mucous membranes of mouth are moist. Tongue is moist. There is no ulcers. THROAT: There is no redness of the oropharynx. There is no exudates. SKIN: There is no skin rashes. There is no skin lesions or skin petechia or ecchymosis. NECK: Supple. There is no JVD. Carotids are equal there is no bruits there is no lymphadenopathy there is no goiter. There is no thyromegaly. There is no accessory muscles of respiration use. Trachea central. LUNGS: Is clear to auscultation percussion without any rhonchi rales or wheezing. HEART: S1-S2 is heard. S1 is variable intensity. There is no S3 gallop there is systolic murmur of MR and TR present. There is no rub. ABDOMEN: Is obese. Nontender. There is no hepatosplenomegaly. Bowel sounds are well heard. EXTREMITIES femorals are deep femorals are diminished there is no femoral bruits. There is no pedal edema. There is no DVT or cellulitis. Leg pulses slightly diminished. There is no calf tenderness. There is no cyanosis or clubbing. LEAVE SPECIALIST: The patient is conscious awake alert oriented x3. PSYCHIATRIC: The patient does not appear to be agitated or anxious. Labs- All tests 24 hr 01/06/20 01/06/20 09:16 09:16 WBC 11.1 H RBC 5.10 Hgb 10.4 L D Hct 34.3 L MCV 67 L MCH 20.3 L MCHC 30.2 L RDW 21.4 H Plt Count 426 Lymph % (Auto) 12.2 L Campbell % (Auto) 6.4 Eos % (Auto) 8.2 H Baso % (Auto) 0.7 Absolute Neuts (auto) 8.0 Absolute Lymphs (auto) 1.4 Absolute Monos (auto) 0.7 Absolute Eos (auto) 0.9 H Absolute Basos (auto) 0.1 Seg Neutrophils % 72.5 Sodium 134.1 L Potassium 4.1 Chloride 96 L Carbon Dioxide 29 Anion Gap 9 BUN 38 H Creatinine 1.57 H Est GFR ( Amer) 55 L Est GFR (MDRD) Non-Af 46 L Glucose 159 H Calcium 9.5 Chest X-Ray 01/03/20 00:00 IMPRESSION: Cardiomegaly without pulmonary edema. IMPRESSION/RECOMMENDATION: 1. Acute on chronic systolic heart failure: Seems at present to be compensated. Continue current treatment. The patient is sick VMT allergic to MACRINA inhibitor which causes angioedema. Hence there is a chance of cross-reactivity with ARB use. Continue the patient on hydralazine. Continue beta-pollo. 2. Cardiomyopathy with moderately reduced LV ejection fraction. Continue Toprol-XL. Cannot use MACRINA inhibitor or ARB in this situation hence we will start the patient on hydralazine. 3. Chronic atrial fibrillation: Continue beta-pollo and Xarelto. 4. Moderate pulmonary hypertension: Hydralazine should help. 5. AICD in situ: No firing of AICD. 6. Hypertension: Blood pressure well controlled 7. History of coronary artery disease: History of old [place] no anginal symptoms. 8. Bipolar disorder: Seems to be well compensated. 9. COPD: No evidence of acute exacerbation. 10. Probably his chronic kidney disease stage III. Avoid nephrotoxic drugs Medications reviewed. Medications added medical regimen and management plan discussed with the attending provider covering Dr. Conti. 40 minutes spent on this patient more than 50% time spent in direct patient care. Medical decision making is of .moderate complexity will follow. 6
[2020-01-06] MEDS: PHARMACY COMMUNICATION ORDER MC SCH (17:34)
[2020-01-06] MEDS: AZITHROMYCIN 250 MG TABLET PO SCH (21:51)
[2020-01-07] MEDS: HYDRALAZINE HCL 10 MG TABLET PO SCH ×2 (05:33→15:01)
[2020-01-07 06:25] LABS: ABSOLUTE BASOPHILS # (AUTO) 0.2 10^3/uL (0.0-0.2); ABSOLUTE EOSINOPHILS # (AUTO) 1.3 10^3/uL (0.0-0.6); ABSOLUTE MONOCYTES (AUTO) 1.2 10^3/uL (0.1-1.4); ABSOLUTE NEUT (AUTO) 8.7 10^3/uL (1.7-8.2); BASOPHILS % (AUTO) 1.2 % (0-2); EOSINOPHILS % (AUTO) 9.7 % (0-6); HEMATOCRIT 33.6 % (37.9-51.0); HEMOGLOBIN 10.3 g/dL (13.5-17.0); LYMPHOCYTES % (AUTO) 14.7 % (13-45); MEAN CORPUSCULAR HEMOGLOBIN 20.5 pg (27.0-33.4); MEAN CORPUSCULAR HGB CONC 30.7 g/dL (32.0-36.0); MEAN CORPUSCULAR VOLUME 67 fl (80-97); MONOCYTES % (AUTO) 9.3 % (3-13); PLATELET COUNT 409 10^3/uL (150-450); RED BLOOD COUNT 5.03 10^6/uL (4.35-5.55); RED CELL DISTRIBUTION WIDTH 21.1 % (11.5-14.0); SEGMENTED NEUTROPHILS % (AUTO) 65.1 % (42-78); TOTAL CELLS COUNTED % (AUTO) 100 %; WHITE BLOOD COUNT 13.4 10^3/uL (4.0-10.5)
[2020-01-07 06:52] LABS: ANION GAP 9 (5-19); BLOOD UREA NITROGEN 38 mg/dL (7-20); CALCIUM 9.5 mg/dL (8.4-10.2); CARBON DIOXIDE 31 mmol/L (22-30); CHLORIDE 94 mmol/L (98-107); GLUCOSE 99 mg/dL (75-110); POTASSIUM 4.5 mmol/L (3.6-5.0)
[2020-01-07] MEDS: METOPROLOL SUCCINATE 50 MG TAB.SR.24H PO SCH (09:50)
[2020-01-07] MEDS: APIXABAN 5 MG TABLET PO SCH (09:50)
[2020-01-07] MEDS: DULOXETINE HCL 30 MG CAPSULE.DR PO SCH (09:50)
[2020-01-07] MEDS: FUROSEMIDE 40 MG TABLET PO SCH (09:50)
[2020-01-07] MEDS: BUSPIRONE HCL 10 MG TABLET PO SCH (09:50)
[2020-01-07 14:24] VITALS: BP 110/82
--- NOTE | 2020-01-07 17:59 | PDOC DISCHARGE SUMMARY ---
Impression - Admit/DC Date/PCP Admission Date/Primary Care Provider: 01/03/20 10:59 JUANITO PEARCE MD Discharge Date: 01/07/20 - Discharge Diagnosis (1) Acute systolic heart failure Is this a current diagnosis for this admission?: Yes (2) Permanent atrial fibrillation Is this a current diagnosis for this admission?: Yes (3) Bipolar 1 disorder Is this a current diagnosis for this admission?: Yes (4) Chronic obstructive pulmonary disease Is this a current diagnosis for this admission?: Yes - Additional Information Discharge Diet: Cardiac Discharge Activity: Activity As Tolerated, Balance Activity w/Rest, Weigh Daily Referrals: JUANITO PEARCE MD [Primary Care Provider] - Prescriptions: RX: Spironolactone [Aldactone] 50 mg PO DAILY #90 RX: Hydralazine HCl [Apresoline 10 mg Tablet] 10 mg PO Q8 #90 tablet RX: Buspirone HCl [Buspar 10 mg Tablet] 10 mg PO BID #60 RX: Duloxetine HCl [Cymbalta] 60 mg PO DAILY #90 RX: Apixaban [Eliquis 5 mg Tablet] 5 mg PO BID #60 tablet RX: Furosemide [Lasix 40 mg Tablet] 40 mg PO DAILY #30 tablet RX: Metoprolol Succinate [Toprol Xl 50 mg Tab.sr] 50 mg PO DAILY #90 tab.sr.24h Home Medications: RX: Albuterol Sulfate [Proair HFA Inhalation Aerosol 8.5 gm MDI] 2 puff IH Q4HP PRN 07/10/19 Triamcinolone Acetonide [Aristocort 0.025% Cream 15 gm] 1 applic TP DAILY 01/05/20 RX: Apixaban [Eliquis 5 mg Tablet] 5 mg PO BID #60 tablet 01/07/20 RX: Buspirone HCl [Buspar 10 mg Tablet] 10 mg PO BID #60 01/07/20 RX: Duloxetine HCl [Cymbalta] 60 mg PO DAILY #90 01/07/20 RX: Furosemide [Lasix 40 mg Tablet] 40 mg PO DAILY #30 tablet 01/07/20 RX: Hydralazine HCl [Apresoline 10 mg Tablet] 10 mg PO Q8 #90 tablet 01/07/20 RX: Metoprolol Succinate [Toprol Xl 50 mg Tab.sr] 50 mg PO DAILY #90 tab.sr.24h 01/07/20 RX: Spironolactone [Aldactone] 50 mg PO DAILY #90 01/07/20 History of Present Illiness History of Present Illness: MALAIKA SARGENT is a 59 year old male,He has a history of chronic dilated systolic and diastolic heart failure he came to the office today for evaluation of refractory lower extremity edema nonresponsive to furosemide, in the office he was evaluated he was found to be in CHF, he was admitted directly from the office to the hospital for management Hospital Course Hospital Course: Patient was admitted for the management of acute systolic heart failure, he was treated with intravenous furosemide, 2D echo was done demonstrated EF 40%. He was seen consultation by Dr. Bowen, cardiology. Medication was adjusted.. He cannot tolerate angiotensin converting enzyme inhibitors because of angioedema, he cannot afford Entresto Physical Exam Vital Signs: Temp Pulse Resp BP Pulse Ox 98.0 F 95 17 110/82 100 01/07/20 11:46 01/07/20 14:00 01/07/20 11:46 01/07/20 11:46 01/07/20 11:46 Intake & Output 01/06/20 01/07/20 01/08/20 06:59 06:59 06:59 Intake Total 1742 1786 Balance 1742 1786 Weight 128.2 kg 129.2 kg General appearance: PRESENT: no acute distress Eye exam: PRESENT: PERRLA Respiratory exam: PRESENT: clear to auscultation johnson Cardiovascular exam: PRESENT: +S1, +S2 GI/Abdominal exam: PRESENT: soft Neurological exam: PRESENT: alert, CN II-XII grossly intact Results Laboratory Results: WBC 13.4 10^3/uL (4.0-10.5) H 01/07/20 05:25 RBC 5.03 10^6/uL (4.35-5.55) 01/07/20 05:25 Hgb 10.3 g/dL (13.5-17.0) L 01/07/20 05:25 Hct 33.6 % (37.9-51.0) L 01/07/20 05:25 MCV 67 fl (80-97) L 01/07/20 05:25 MCH 20.5 pg (27.0-33.4) L 01/07/20 05:25 MCHC 30.7 g/dL (32.0-36.0) L 01/07/20 05:25 RDW 21.1 % (11.5-14.0) H 01/07/20 05:25 Plt Count 409 10^3/uL (150-450) 01/07/20 05:25 Lymph % (Auto) 14.7 % (13-45) 01/07/20 05:25 [place] % (Auto) 9.3 % (3-13) 01/07/20 05:25 Eos % (Auto) 9.7 % (0-6) H 01/07/20 05:25 Baso % (Auto) 1.2 % (0-2) 01/07/20 05:25 Absolute Neuts (auto) 8.7 10^3/uL (1.7-8.2) H 01/07/20 05:25 Absolute Lymphs (auto) 2.0 10^3/uL (0.5-4.7) 01/07/20 05:25 Absolute Monos (auto) 1.2 10^3/uL (0.1-1.4) 01/07/20 05:25 Absolute Eos (auto) 1.3 10^3/uL (0.0-0.6) H 01/07/20 05:25 Absolute Basos (auto) 0.2 10^3/uL (0.0-0.2) 01/07/20 05:25 Seg Neutrophils % 65.1 % (42-78) 01/07/20 05:25 Sodium 134.3 mmol/L (137-145) L 01/07/20 05:25 Potassium 4.5 mmol/L (3.6-5.0) 01/07/20 05:25 Chloride 94 mmol/L (98-107) L 01/07/20 05:25 Carbon Dioxide 31 mmol/L (22-30) H 01/07/20 05:25 Anion Gap 9 (5-19) 01/07/20 05:25 BUN 38 mg/dL (7-20) H 01/07/20 05:25 Creatinine 1.56 mg/dL (0.52-1.25) H 01/07/20 05:25 Est GFR ( Amer) 55 (>60) L 01/07/20 05:25 Est GFR (MDRD) Non-Af 46 (>60) L 01/07/20 05:25 Glucose 99 mg/dL (75-110) 01/07/20 05:25 Calcium 9.5 mg/dL (8.4-10.2) 01/07/20 05:25 Total Bilirubin 0.4 mg/dL (0.2-1.3) 01/03/20 12:33 Direct Bilirubin 0.0 mg/dL (0.0-0.4) 01/03/20 12:33 Neonat Total Bilirubin Not Reportable 01/03/20 12:33 Neonat Direct Bilirubin Not Reportable 01/03/20 12:33 Neonat Indirect Bili Not Reportable 01/03/20 12:33 AST 23 U/L (17-59) 01/03/20 12:33 ALT 17 U/L (<50) 01/03/20 12:33 Alkaline Phosphatase 80 U/L (38-126) 01/03/20 12:33 NT-Pro-B Natriuret Pep 1020 pg/mL (<125) H 01/07/20 05:25 Total Protein 7.0 g/dL (6.3-8.2) 01/03/20 12:33 Albumin 4.1 g/dL (3.5-5.0) 01/03/20 12:33 Urine Color STRAW 01/03/20 17:53 Urine Appearance CLEAR 01/03/20 17:53 Urine pH 6.0 (5.0-9.0) 01/03/20 17:53 Ur Specific [place] 1.012 01/03/20 17:53 Urine Protein NEGATIVE mg/dL (NEGATIVE) 01/03/20 17:53 Urine Glucose (UA) NEGATIVE mg/dL (NEGATIVE) 01/03/20 17:53 Urine Ketones NEGATIVE mg/dL (NEGATIVE) 01/03/20 17:53 Urine Blood NEGATIVE (NEGATIVE) 01/03/20 17:53 Urine Nitrite NEGATIVE (NEGATIVE) 01/03/20 17:53 Urine Bilirubin NEGATIVE (NEGATIVE) 01/03/20 17:53 Urine Urobilinogen NEGATIVE mg/dL (<2.0) 01/03/20 17:53 Ur Leukocyte Esterase NEGATIVE (NEGATIVE) 01/03/20 17:53 Urine WBC (Auto) 0 /HPF 01/03/20 17:53 Urine RBC (Auto) 1 /HPF 01/03/20 17:53 U Hyaline Cast (Auto) 3 /LPF 01/03/20 17:53 Urine Mucus (Auto) RARE /LPF 01/03/20 17:53 Urine Ascorbic Acid NEGATIVE (NEGATIVE) 01/03/20 17:53 01/03/20 01/07/20 12:33 05:25 NT-Pro-B Natriuret Pep 2480 H 1020 H Impressions: Chest X-Ray 01/03/20 00:00 IMPRESSION: Cardiomegaly without pulmonary edema. Stroke Is this a Stroke Patient?: No Acute Heart Failure - Is this a Heart Failure Patient?: Yes Documentation of LVEF assessment?: Yes LVEF: LVEF Less Than or Equal to 40% Anticoagulant Therapy: Yes Discharged on Evidence-Based Beta Blockers: Yes Discharged on ARNI?: No-Document Contraindications Reason(s) not discharged on ARNI: Allergy Discharged on ARB?: No-document contraindications Reason(s) not Discharged on ARB: Allergy Discharged on ACEI?: No, document contraindications Reason(s) not Discharged on ACEI: Allergy For LVEF <35%, discharged on Aldosterone Antagonist?: N/A (LVEF > or = 35%) Follow-up Appointment scheduled within 7 days?: Yes
--- NOTE | 2020-01-07 20:33 | Progress Note ---
Provider Note Provider Note: Cardiology PROGRESS NOTE by Dr. Stephen Todd on 01/07/2020. OBJECTIVE: The patient denies any chest pain or discomfort. There is no shortness of breath. There is no PND orthopnea. He continues to be in atrial fibrillation with controlled ventricular response. There is no firing of his of the AICD. He has no anginal symptoms. There is no TIA CVA symptoms. There is no bleeding on anticoagulation. PHYSICAL EXAMINATION: The patient is moderate to morbidly obese. In no acute distress. Selected Entries 01/07/20 11:46 Temperature 98.0 F Temperature Oral Source Pulse Rate 81 Respiratory 17 Rate Blood Pressure 110/82 Blood Pressure 91 Mean BP Location Left Arm BP Position Sitting O2 Sat by Pulse 100 Oximetry Oxygen Delivery Room Air Method HEAD: Is atraumatic normocephalic. EYES: Pupils are equal round regular reactive to light accommodation. Extraocular movements are normal. There is no conjunctival pallor. There is no scleral icterus. EARS: Tympanic membranes are intact. External auditory canals are clear. NOSE: There is no deviated nasal septum. There is no inflammation of the nasal mucous membrane. MOUTH: Mucous membranes of mouth are moist. Tongue is moist. There is no ulcers. THROAT: There is no redness of the oropharynx. There is no exudates. SKIN: There is no skin rashes. There is no skin lesions or skin petechia or ecchymosis. NECK: Supple. There is no JVD. Carotids are equal there is no bruits there is no lym phadenopathy there is no goiter. There is no thyromegaly. There is no accessory muscles of respiration use. Trachea central. LUNGS: Is clear to auscultation percussion without any rhonchi rales or wheezing. HEART: S1-S2 is heard. S1 is variable intensity. There is no S3 gallop there is systolic murmur of MR and TR present. There is no rub. ABDOMEN: Is obese. Nontender. There is no hepatosplenomegaly. Bowel sounds are well heard. EXTREMITIES femorals are deep femorals are diminished there is no femoral bruits. There is no pedal edema. There is no DVT or cellulitis. Leg pulses slightly diminished. There is no calf tenderness. There is no cyanosis or clubbing. SAXOPHONE PLAYER: The patient is conscious awake alert oriented x3. PSYCHIATRIC: The patient does not appear to be agitated or anxious. Labs- All tests 24 hr 01/07/20 01/07/20 01/07/20 05:25 05:25 05:25 WBC 13.4 H RBC 5.03 Hgb 10.3 L Hct 33.6 L MCV 67 L MCH 20.5 L MCHC 30.7 L RDW 21.1 H Plt Count 409 Lymph % (Auto) 14.7 [place] % (Auto) 9.3 Eos % (Auto) 9.7 H Baso % (Auto) 1.2 Absolute Neuts (auto) 8.7 H Absolute Lymphs (auto) 2.0 Absolute Monos (auto) 1.2 Absolute Eos (auto) 1.3 H Absolute Basos (auto) 0.2 Seg Neutrophils % 65.1 Sodium 134.3 L Potassium 4.5 Chloride 94 L Carbon Dioxide 31 H Anion Gap 9 BUN 38 H Creatinine 1.56 H Est GFR ( Amer) 55 L Est GFR (MDRD) Non-Af 46 L Glucose 99 Calcium 9.5 NT-Pro-B Natriuret Pep 1020 H Chest X-Ray 01/03/20 00:00 IMPRESSION: Cardiomegaly without pulmonary edema. IMPRESSION/RECOMMENDATION: 1. Acute on chronic systolic heart failure: Seems at present to be compensated. Continue current treatment. The patient is severely allergic to MACRINA inhibitor which causes angioedema. Hence there is a chance of cross-reactivity with ARB use. Continue the patient on hydralazine. Continue beta-pollo. 2. Cardiomyopathy with moderately reduced LV ejection fraction. Continue Toprol-XL. Cannot use MACRINA inhibitor or ARB in this situation hence we will start the patient on hydralazine. 3. Chronic atrial fibrillation: Continue beta-pollo and Xarelto. 4. Moderate pulmonary hypertension: Hydralazine should help. 5. AICD in situ: No firing of AICD. 6. Hypertension: Blood pressure is well controlled. 7. History of coronary artery disease: History of old OR no anginal symptoms. 8. Bipolar disorder: Seems to be well compensated. 9. COPD: No evidence of acute exacerbation. 10. Probably his chronic kidney disease stage III. Avoid nephrotoxic drugs Medications reviewed. Medications added medical regimen and management plan discussed with the attending provider covering Dr. Conti. 40 minutes spent on this patient more than 50% time spent in direct patient care. Medical decision making is of .moderate complexity. The patient's cardiac status is stable. We will sign off and follow the patient in the office.
== END 2020-01-07 18:29 | disposition home or self-care (01) | DRG 292 ==
LOC: 3S 10:59
PROVIDERS: ADMIT Internal Medicine; ATTEND Internal Medicine
DX: I11.0 Hypertensive heart disease with heart failure (principal); I48.21 Permanent atrial fibrillation; I50.43 Acute on chronic combined systolic (congestive) and diastolic (congestive) heart failure; F31.9 Bipolar disorder, unspecified; I27.20 Pulmonary hypertension, unspecified; I25.10 Atherosclerotic heart disease of native coronary artery without angina pectoris; J44.9 Chronic obstructive pulmonary disease, unspecified; I42.8 Other cardiomyopathies; Z90.49 Acquired absence of other specified parts of digestive tract; I25.2 Old myocardial infarction; Z95.810 Presence of automatic (implantable) cardiac defibrillator; Z82.49 Family history of ischemic heart disease and other diseases of the circulatory system; Z79.899 Other long term (current) drug therapy; Z79.51 Long term (current) use of inhaled steroids; Z79.01 Long term (current) use of anticoagulants
CPT/HCPCS: 36415; 71046; 80048; 80076; 81001; 83880; 85025; 85027; 93005; 93010; 93306; J1940; J3490; J7050

== ENCOUNTER 2020-04-15 15:28 | Emergency (ER) | payer MEDICARE, OTHER ==
--- NOTE | 2020-04-15 16:03 | ER Document Report ---
ED Medical Screen (RME) - General Stated Complaint: PSYCH EVAL Time Seen by Provider: 04/15/20 15:54 Primary Care Provider: JUANITO PEARCE MD [Primary Care Provider] - Follow up as needed Notes: Patient is a 60-year-old male with history of stroke who presents to the emergency department with a chief complaint of feeling depressed and suicidal ideation. Denies any plan. When I asked him if he wants to kill himself he states, "I do not know." Patient has history of bipolar disorder, stopped taking his medications 2 years ago. states that the patient has felt depressed for the past week. Denies any new weakness. Denies any homicidal ideation. Exam: Appears depressed. Patient crying in room. I have greeted and performed a rapid initial assessment of this patient. A comprehensive ED assessment and evaluation of the patient, analysis of test results and completion of medical decision making process will be conducted by an additional ED providers. TRAVEL OUTSIDE OF THE [place] IN LAST 30 DAYS: No - Related Data Allergies/Adverse Reactions: JEOVANY Inhibitors [Jeovany Inhibitors] Allergy (Severe, Verified 04/15/20 15:54) Facial swelling enalapril [Enalapril] Adverse Reaction (Severe, Verified 04/15/20 15:54) periorbital edema lisinopril Adverse Reaction (Severe, Verified 04/15/20 15:54) periorbital edema Past Medical History - Past Medical History Cardiac Medical History: Reports: Hx Atrial Fibrillation, Hx Congestive Heart Failure, Hx Coronary Artery Disease, Hx Heart Attack - 2012, Hx Hypercholesterolemia, Hx Hypertension - MEDS Denies: Hx Peripheral Vascular Disease, Hx Pulmonary Embolism, Hx Heart Murmur Pulmonary Medical History: Reports: Hx Bronchitis, Hx Pneumonia Denies: Hx Asthma, Hx COPD, Hx Respiratory Failure, Hx Sleep Apnea, Hx Tuberculosis Neurological Medical History: Reports: Hx Cerebrovascular Accident - 2012 OR 2013, Hx Seizures. Denies: Hx Parkinson's Disease Renal/ Medical History: Reports: Hx Kidney Stones. Denies: Hx Benign Prostatic Hyperplasia, Hx End Stage Renal Disease, Hx Peritoneal Dialysis Malignancy Medical History: Denies Hx Lung Cancer GI Medical History: Reports: Hx Gastroesophageal Reflux Disease. Denies: Hx Crohn's Disease, Hx Hepatitis, Hx Hiatal Hernia, Hx Irritable Bowel, Hx Liver Failure, Hx Pancreatitis, Hx Ulcer Musculoskeltal Medical History: Denies Hx Arthritis, Denies Hx Fibromyalgia, Reports Hx Multiple Sclerosis, Denies Hx Muscular Dystrophy Psychiatric Medical History: Reports: Hx Bipolar Disorder Denies: Hx Dementia, Hx Depression, Hx Post Traumatic Stress Disorder, Hx Schizophrenia Traumatic Medical History: Denies: Hx Fractures Infectious Medical History: Denies: Hx Hepatitis Past Surgical History: Reports: Hx Appendectomy, Hx Bowel Surgery, Hx Cardiac Catheterization, Hx Cardiac Surgery, Hx Cholecystectomy, Hx Internal Defibrillator, Hx Pacemaker, Hx Tonsillectomy. Denies: Hx Colostomy, Hx Coronary Artery Bypass Graft, Hx Gastric Bypass Surgery, Hx Herniorrhaphy, Hx Open Heart Surgery - Immunizations Immunizations up to date: Yes Hx Diphtheria, Pertussis, Tetanus Vaccination: Yes Physical Exam - Vital signs Vitals: Temp Pulse Resp BP Pulse Ox 98.7 F 95 16 130/93 H 97 04/15/20 15:37 04/15/20 15:37 04/15/20 15:37 04/15/20 15:37 04/15/20 15:37 Course - Vital Signs Vital signs: Temp Pulse Resp BP Pulse Ox 98.7 F 95 16 130/93 H 97 04/15/20 15:37 04/15/20 15:37 04/15/20 15:37 04/15/20 15:37 04/15/20 15:37 Doctor's Discharge - Discharge Referrals: JUANITO PEARCE MD [Primary Care Provider] - Follow up as needed
[2020-04-15 16:44] LABS: APPEARANCE,URINE CLEAR; BILIRUBIN,URINE NEGATIVE (NEGATIVE); COLOR,URINE YELLOW; GLUCOSE, URINE NEGATIVE (NEGATIVE); KETONES,URINE NEGATIVE (NEGATIVE); LEUKOCYTE ESTERASE,URINE NEGATIVE (NEGATIVE); NITRITE,URINE NEGATIVE (NEGATIVE); PROTEIN,URINE NEGATIVE (NEGATIVE); URINE SPECIFIC GRAVITY 1.013; UROBILINOGEN,URINE NEGATIVE mg/dL (<2.0)
[2020-04-15 16:45] LABS: ABSOLUTE BASOPHILS # (AUTO) 0.1 10^3/uL (0.0-0.2); ABSOLUTE EOSINOPHILS # (AUTO) 0.6 10^3/uL (0.0-0.6); ABSOLUTE LYMPHOCYTES (AUTO) 1.9 10^3/uL (0.5-4.7); ABSOLUTE NEUT (AUTO) 10.8 10^3/uL (1.7-8.2); BASOPHILS % (AUTO) 0.9 % (0-2); EOSINOPHILS % (AUTO) 3.9 % (0-6); HEMATOCRIT 44.7 % (37.9-51.0); HEMOGLOBIN 14.5 g/dL (13.5-17.0); LYMPHOCYTES % (AUTO) 13.4 % (13-45); MEAN CORPUSCULAR HEMOGLOBIN 25.1 pg (27.0-33.4); MEAN CORPUSCULAR HGB CONC 32.4 g/dL (32.0-36.0); MEAN CORPUSCULAR VOLUME 78 fl (80-97); MONOCYTES % (AUTO) 6.6 % (3-13); PLATELET COUNT 270 10^3/uL (150-450); RED BLOOD COUNT 5.77 10^6/uL (4.35-5.55); RED CELL DISTRIBUTION WIDTH 29.5 % (11.5-14.0); SEGMENTED NEUTROPHILS % (AUTO) 75.2 % (42-78); TOTAL CELLS COUNTED % (AUTO) 100 %; WHITE BLOOD COUNT 14.4 10^3/uL (4.0-10.5)
[2020-04-15 16:56] LABS: ALBUMIN 4.1 g/dL (3.5-5.0); ALKALINE PHOSPHATASE 91 U/L (38-126); ANION GAP 11 (5-19); ASPARTATE AMINO TRANSFERASE 24 U/L (17-59); BILIRUBIN,DIRECT 0.3 mg/dL (0.0-0.4); BILIRUBIN,TOTAL 0.6 mg/dL (0.2-1.3); BLOOD UREA NITROGEN 22 mg/dL (7-20); CALCIUM 8.6 mg/dL (8.4-10.2); CARBON DIOXIDE 29 mmol/L (22-30); CHLORIDE 100 mmol/L (98-107); GLUCOSE 82 mg/dL (75-110); POTASSIUM 3.7 mmol/L (3.6-5.0); TOTAL PROTEIN 6.8 g/dL (6.3-8.2)
[2020-04-15 16:57] LABS: ALCOHOL < 10 mg/dL (NONE DETECTED); URINE AMPHETAMINES SCREEN NEGATIVE; URINE BARBITURATES SCREEN NEGATIVE; URINE BENZODIAZEPINES SCREEN NEGATIVE; URINE COCAINE SCREEN NEGATIVE; URINE MARIJUANA (THC) SCREEN NEGATIVE; URINE METHADONE SCREEN NEGATIVE; URINE PHENCYCLIDINE SCREEN NEGATIVE
[2020-04-15 16:58] LABS: ACETAMINOPHEN < 10 ug/mL (10-30); SALICYLATE < 1.0 mg/dL (2.0-20.0)
[2020-04-15 17:14] LABS: ANISOCYTOSIS 4+; PLATELET COMMENT ADEQUATE
[2020-04-15 17:15] LABS: HYPOCHROMASIA 1+; OVALOCYTES SLIGHT
--- NOTE | 2020-04-15 18:07 | PSYCHOLOGICAL NOTE ---
Psych Note - Psych Note Date seen by psych provider: 04/15/20 Time seen by psych provider: 17:30 Psych Note: Reason for Consult: Suicidal ideation Patient's at bedside per patient's request Patient reports his brought him to [facility] ED because " thoughts of hurting myself I guess." Patient confirms onset of suicidal ideation was approximately 3 to 4 days ago. Patient does have a history of suicidal ideation and inpatient psychiatric treatment. Patient reports he is "scared of talking because I do not want to go inpatient." Patient refuses to further engage with clinician Patient's reports that the patient does have therapy scheduled for 0; this will be his first appointment. He is currently not on any medications however has been on medications in the past however he "quit taking them." Patient is diagnosed bipolar and has been inpatient psychiatric treatment previously. She continues to report that the patient has been having difficulty with memory thinking he is done things today when they have been done weeks ago and stating he is watched to show before when he has not. She reports the patient's mind has been racing has been "crying a lot lately." Patient states his is saying too much. Patient is alert and orientated to person, place, time and circumstance. Mood is irritable and anxious with slightly tearful affect. Patient endorses suicidal ideation denies homicidal ideation. Currently delusions are absent and behaviors congruent with an intact reality based presentation ie organized and linear thought process. Eye contact is poor as patient keeps his eyes closed and refuses to open them. Patient is noted to have slight psychomotor agitation with his leg shaking. Medication recommendations per [facility]'s contract psyciatrist Dr vadim DIAS are as follows: discontinue doxepin decrease Cymbalta to 30mg for 5 days then discontinue add depakote 250mg twice daily add buspar 5mg twice daily Impression/Plan:Patient is recommended for 24 hour petition for evaluation; paperwork is signed and placed in patient's chart. Patient presents with irritable mood and tearful affect. Patient has diagnosis of bipolar and he is currently not taking medication. On set of suicidal ideation 3 to 4 days ago. Patient refused to engage with clinician. Evaluation is ongoing. Dr. Mckay was consulted in the care management of this patient; tending physicians in agreement with recommendations and disposition.
--- NOTE | 2020-04-15 18:49 | ER Document Report ---
ED Psych Disorder / Suicide - General Chief Complaint: Psych Problem Stated Complaint: PSYCH EVAL Time Seen by Provider: 04/15/20 15:54 Primary Care Provider: JUANITO PEARCE MD [Primary Care Provider] - Follow up as needed Notes: 60-year-old male past medical history of bipolar, depression, afib, congestive heart failure, HTN, HLD, CVA presenting today with thoughts of hurting himself for an unspecified amount of time. When asked how long he has had thoughts of hurting himself he reports he does not know today. I asked if it has been months to years and he says he does not now. He states he does not have any suicidal plan or intent. No prior suicide attempt. Prior suicidal thoughts. He currently denies any shortness of breath, chest pain or additional symptoms at this time. When asked about his past medical history he says he is seen for a lot of things. Is not certain of the medications that he takes. His has all this information. TRAVEL OUTSIDE OF THE [place] IN LAST 30 DAYS: No - Related Data Allergies/Adverse Reactions: JEOVANY Inhibitors [Jeovany Inhibitors] Allergy (Severe, Verified 04/15/20 15:54) Facial swelling enalapril [Enalapril] Adverse Reaction (Severe, Verified 04/15/20 15:54) periorbital edema lisinopril Adverse Reaction (Severe, Verified 04/15/20 15:54) periorbital edema Past Medical History - Social History Smoking Status: Never Smoker Chew tobacco use (# tins/day): No Frequency of alcohol use: None Drug Abuse: None Family History: CAD Patient has homicidal ideation: No - Past Medical History Cardiac Medical History: Reports: Hx Atrial Fibrillation, Hx Congestive Heart Failure, Hx Coronary Artery Disease, Hx Heart Attack - 2012, Hx Hypercholesterolemia, Hx Hypertension - MEDS Denies: Hx Peripheral Vascular Disease, Hx Pulmonary Embolism, Hx Heart Murmur Pulmonary Medical History: Reports: Hx Bronchitis, Hx Pneumonia Denies: Hx Asthma, Hx COPD, Hx Respiratory Failure, Hx Sleep Apnea, Hx Tuberculosis Neurological Medical History: Reports: Hx Cerebrovascular Accident - 2011 OR 2012, Hx Seizures. Denies: Hx Parkinson's Disease Renal/ Medical History: Reports: Hx Kidney Stones. Denies: Hx Benign Prostatic Hyperplasia, Hx End Stage Renal Disease, Hx Peritoneal Dialysis Malignancy Medical History: Denies Hx Lung Cancer GI Medical History: Reports: Hx Gastroesophageal Reflux Disease. Denies: Hx Crohn's Disease, Hx Hepatitis, Hx Hiatal Hernia, Hx Irritable Bowel, Hx Liver Failure, Hx Pancreatitis, Hx Ulcer Musculoskeletal Medical History: Denies Hx Arthritis, Denies Hx Fibromyalgia, Reports Hx Multiple Sclerosis, Denies Hx Muscular Dystrophy Psychiatric Medical History: Reports: Hx Bipolar Disorder - noncompliant Denies: Hx Dementia, Hx Depression, Hx Post Traumatic Stress Disorder, Hx Schizophrenia Traumatic Medical History: Denies: Hx Fractures Infectious Medical History: Denies: Hx Hepatitis Past Surgical History: Reports: Hx Appendectomy, Hx Bowel Surgery, Hx Cardiac Catheterization, Hx Cardiac Surgery, Hx Cholecystectomy, Hx Internal Defibrillator, Hx Pacemaker, Hx Tonsillectomy. Denies: Hx Colostomy, Hx Coronary Artery Bypass Graft, Hx Gastric Bypass Surgery, Hx Herniorrhaphy, Hx Open Heart Surgery - Immunizations Immunizations up to date: Yes Hx Diphtheria, Pertussis, Tetanus Vaccination: Yes Hx Pneumococcal Vaccination: 08/01/08 Review of Systems - Review of Systems Constitutional: No symptoms reported EENT: No symptoms reported Cardiovascular: No symptoms reported Respiratory: No symptoms reported Gastrointestinal: No symptoms reported Genitourinary: No symptoms reported Male Genitourinary: No symptoms reported Musculoskeletal: No symptoms reported Skin: No symptoms reported Hematologic/Lymphatic: No symptoms reported Neurological/Psychological: No symptoms reported Physical Exam - Vital signs Vitals: Temp Pulse Resp BP Pulse Ox 98.7 F 95 16 130/93 H 97 04/15/20 15:37 04/15/20 15:37 04/15/20 15:37 04/15/20 15:37 04/15/20 15:37 Interpretation: Normal - Notes Notes: Adult General: GENERAL: Alert, No acute distress HEAD: Normocephalic, atraumatic EYES: Extraocular movements intact. ENT: Airway patent. Nares patent. NECK: Full range of motion. Supple. Trachea midline. No lymphadenopathy. LUNGS: Clear to auscultation bilaterally, no wheezes, rales, or rhonchi. No respiratory distress. Nontender chest wall. HEART: irregularly irregular. No murmurs, rubs or gallops. ABDOMEN: Nondistended. GENITOURINARY: Deferred EXTREMITIES: Moves all 4 extremities spontaneously. BACK: Moves all extremities with full range of motion. NEUROLOGICAL: Alert and oriented x3. Normal speech. Cranial nerves II through XII grossly intact. Strength 5/ 5 in all extremities. PSYCH: flat affect, dysphoric. SKIN: Warm, dry, normal turgor. No rashes or lesions noted. Course - Re-evaluation Re-evalutation: 04/15/20 18:51 Patient denies any acute concerns at this time. Initial labs show that his creatinine is elevated at 1.51. This appears to be stable for him. EKG shows afib/a flutter with v paced complexes. Repeat ekg ordered to better evaluate rhythm. Am pending notifiying the ER of patients medication to order night time medications. Pending mental health consultation. - Vital Signs Vital signs: Temp Pulse Resp BP Pulse Ox 99 F 68 18 128/78 H 96 04/17/20 08:34 04/17/20 08:34 04/17/20 08:34 04/17/20 08:34 04/17/20 08:34 - Laboratory Result Diagrams: 04/15/20 16:27 04/15/20 16:27 Laboratory results interpreted by me: 04/15/20 04/15/20 16:27 16:27 WBC 14.4 H RBC 5.77 H MCV 78 L MCH 25.1 L RDW 29.5 H Absolute Neuts (auto) 10.8 H BUN 22 H Creatinine 1.51 H Est GFR ( Amer) 58 L Est GFR (MDRD) Non-Af 48 L Salicylates < 1.0 L Acetaminophen < 10 L - EKG Interpretation by Ny Rhythm: A.Fib Additional EKG results interpreted by me: 04/15/20 20:31 EKG shows hr 96, qtc 471, shows afib with ventricular paced complexes. Prior ekg also shows afib and v paced complexes. Discharge - Discharge Clinical Impression: Atrial fibrillation Condition: Stable Disposition: PSYCH HOSP/UNIT Referrals: JUANITO PEARCE MD [Primary Care Provider] - Follow up as needed
--- NOTE | 2020-04-15 21:04 | ER Document Report ---
Doctor's Note Notes: 04/15/20 21:03 Nursing staff provided home medication reconciliation as verified by the pharmacist plastic eye technician. Medication orders signed will be faxed to pharmacy for weight recorder.
[2020-04-15] MEDS ORDERED: (PENDING PHARMACY ID) (Albuterol Sulfate 2 PUFF) IH PRN (21:11)
[2020-04-15] MEDS ORDERED: ALBUTEROL SULFATE HFA (90 MCG/PUFF) 8 GM MDI IH PRN (21:14)
[2020-04-15] MEDS ORDERED: (PENDING PHARMACY ID) (Doxepin Hcl [Doxepin Hcl] 75 MG) PO SCH (22:00)
[2020-04-15] MEDS ORDERED: DOXEPIN HCL 25 MG CAPSULE PO SCH (22:00)
[2020-04-15] MEDS: HYDRALAZINE HCL 10 MG TABLET PO SCH (22:53)
[2020-04-16] MEDS: BUSPIRONE HCL 10 MG TABLET PO SCH ×3 (00:32→18:11)
[2020-04-16] MEDS: DIVALPROEX SODIUM 250 MG TAB.SR.24H PO SCH ×3 (00:33→18:11)
--- NOTE | 2020-04-16 00:57 | EKG REPORT ---
SEVERITY:- ABNORMAL ECG - AFIB/FLUT AND V-PACED COMPLEXES BORDERLINE T ABNORMALITIES, INFERIOR LEADS : Confirmed by: Christie Montgomery 16-Apr-2020 00:56:03
[2020-04-16] MEDS: HYDRALAZINE HCL 10 MG TABLET PO SCH ×3 (06:22→22:19)
[2020-04-16] MEDS: FERROUS SULFATE 325 MG TABLET PO SCH ×2 (09:59→18:11)
[2020-04-16] MEDS ORDERED: DULOXETINE HCL 30 MG CAPSULE.DR PO SCH ×2 (10:00)
[2020-04-16] MEDS ORDERED: METOPROLOL SUCCINATE 50 MG TAB.SR.24H PO SCH (10:00)
[2020-04-16] MEDS: APIXABAN 5 MG TABLET PO SCH ×2 (10:00→18:11)
[2020-04-16] MEDS ORDERED: FUROSEMIDE 40 MG TABLET PO SCH (10:00)
--- NOTE | 2020-04-16 11:52 | ER Document Report ---
Doctor's Note Notes: 04/16/20 11:52 Patient is somewhat quiet in the room states that he still feels like he is not doing well. Still has thoughts of harming himself that are general in nature. Patient significant other in the room with him who agrees with this assessment. Awaiting current psychiatric evaluation on the patient for plan
[2020-04-17] MEDS: HYDRALAZINE HCL 10 MG TABLET PO SCH (07:03)
[2020-04-17 08:35] VITALS: BP 128/78
--- NOTE | 2020-04-18 10:55 | PSYCHOLOGICAL NOTE ---
Psych Note - Psych Note Date seen by psych provider: 04/16/20 Time seen by psych provider: 11:28 - Re evaluation with patient and who was at bedside from [id number]. Psych Note: Patient is a 60 year old male in the Emergency Department on a 24 Hour Petition for Evaluation for suicidal ideation over the past 3-4 days, first therapy session not until , history of Bipolar Disorder, and not currently on medication. Patient reported "I ain't doing the best in the world" when asked how he was doing today. At first he denied current suicidal thoughts, when asked if the thoughts come and go he said no, then he stated "I am not answering anymore questions about this." His tried to encourage him to be open and honest and he commented "I'm just doomed." He eventually said "maybe I would do something" when this clinician challenged him that the only way to help is to try to understand how he is feeling and know what his thoughts are. he then stated "I am too far gone I believe" and stopped talking. Patient was alert and oriented to self, person, place, time and situation. Mood was depressed with flat affect. He was incongruent with his denied suicidal ideation but then not being forth coming about thoughts and feelings. Patient did not appear to be responding to internal stimuli as evidenced by fair eye contact and answering questions appropriately when addressed. Thought processes were linear and organized. Conversational speech was within normal limits for rate, tone and prosody. Intellectual abilities are estimated to be average. Insight, judgment and impulse control were poor as evidenced by discrepancy in denied suicidal ideation then saying he wasn't going to answer anymore questions about suicidal ideation due to concerns for going inpatient. Observed trying to mouth patient needing help without him noticing. Clinical Presentation: Suicidal Ideation Vague and discrete and discrete about suicidal ideation History of Bipolar and having been off medication Impression/Plan: Recommendation for FULL Involuntary Commitment. Patient had discrepancies in reported and denying suicidal ideation. From initial presentation he noted not wanting to answer questions about suicidal ideation for fear of going inpatient. He continued being vague and discrete today. He has a history of Bipolar and has been off medications. Consulted with Dr. Mckay regarding the management and care of patient. ED Physician in agreement with recommendations. Placement efforts were sought. Patient accepted to [facility] after 0900 tomorrow (04/17/2020) morning. Will move forward with that placement. Patient and made rodriguez of acceptance and provided with Ebony Osei booklet.
== END 2020-04-17 08:36 ==
LOC: ER 15:28
DX: I48.91 Unspecified atrial fibrillation (principal); F31.9 Bipolar disorder, unspecified; I25.10 Atherosclerotic heart disease of native coronary artery without angina pectoris; I10 Essential (primary) hypertension; Z88.8 Allergy status to other drugs, medicaments and biological substances
CPT/HCPCS: 93005; 99281; 36415; 80307 ×4; 85025; 80053; 81001; 93010; A9270 ×10; J3490